=== PATIENT | female | born 1955 | race American Indian/Alaskan Native ===

== ENCOUNTER 2016-09-28 14:36 | Inpatient (IN) | payer MEDICARE ==
[2016-09-28 15:24] LABS: INR 1.06 (0.87-1.13)
[2016-09-28 15:34] LABS: Basophils % (Auto) 0.4 % (0.0-1.8); Eosinophils % (Auto) 0.6 % (0.0-4.3); Hematocrit 29.6 % (30.3-42.9); Hemoglobin 9.3 gm/dl (10.1-14.3); Mean Corpuscular HGB Conc 31 % (30-34); Mean Corpuscular Volume 80 fl (79-97); Platelet Count 150 K/mm3 (140-440); White Blood Count 7.3 K/mm3 (4.5-11.0)
[2016-09-28 15:35] LABS: Mean Corpuscular Hemoglobin 25 pg (28-32)
[2016-09-28 15:36] LABS: Red Cell Distribution Width 20.6 % (13.2-15.2)
[2016-09-28 16:00] LABS: Creatine Kinase MB 1.3 ng/mL (0.0-4.0)
[2016-09-28 16:01] LABS: Creatine Kinase 62 units/L (30-135)
[2016-09-28 16:11] LABS: BUN/Creatinine Ratio 19.33; Calcium 9.3 mg/dL (8.4-10.2); Chloride 100.8 mmol/L (98-107); Potassium 3.9 mmol/L (3.6-5.0)
[2016-09-28] MEDS ORDERED: MORPHINE ONE ×2 (16:54→16:55)
[2016-09-28] MEDS ORDERED: ZOFRAN ONE (16:55)
[2016-09-28] MEDS ORDERED: NACL 0.9% 1000 ML 1,000 ML IV ONE (16:58)
[2016-09-28] MEDS ORDERED: MORPHINE IV ONE (16:58)
[2016-09-28] MEDS ORDERED: ZOFRAN IV ONE (16:58)
[2016-09-28] MEDS ORDERED: HEPARIN 10,000 UNITS/10 ML IV ONE (16:58)
[2016-09-28] MEDS ORDERED: HEPARIN/ 0.45% NACL-25,000 UNIT/500 ML 25,000 UNIT/500 ML BAG ONE (17:08)
--- NOTE | 2016-09-28 17:18 | Consultation ---
History of Present Illness - Reason for Consult Consult date: 09/28/16 Ileofemoral DVT Requesting physician: RITO ROSA - History of Present Illness 61-year-old female with past medical history chronic low back pain and extensive lower extremity swelling status post iliac stents placed by Dr. Zimmerman in July 2016 which improved her swelling significantly, but in the last week, she developed severe swelling of the left lower extremity, and pain of the left lower extremity. This has prohibited her from walking, and has severely limited her by mouth intake as she isn't hungry due to her pain. The patient presented to [facility] yesterday, was provided a Lovenox injection, and told to follow-up at [facility] vascular specialist office which the patient did. At our office, the patient had an ultrasound demonstrating a left lower extremity iliofemoral DVT. The patient's right lower extremity feels fine. She also mentions that she feels somewhat short of breath, but her cardiac enzymes, and BNP are normal. Her heart rate is normal, and even slightly bradycardic at times (56). She denies a history of hematemesis, hematochezia, melena, prior stroke, prior myocardial infarction, or any bleeding issue. She denies any recent surgeries in the last year. Past History Past Medical History: anemia (chronic), diabetes, hypertension, hyperlipidemia, other (chronic pain ; venous insuffiency, status post iliac stenting 08/03/16 ; thyroid disease ; asthma) Past Surgical History: cholecystectomy, , thyroidectomy, total hip replacement, Other (tubal ligation) Social history: single Family history: no significant family history Medications and Allergies Allergies Allergy/AdvReac Type Severity Reaction Status Date / Time Penicillins Allergy Hives Verified 09/28/16 14:39 Active Meds: Active Medications Heparin Sodium/Sodium Chloride (Heparin/ 0.45% Nacl-25,000 Unit/500 Ml) 25,000 units in 500 mls @ 20 mls/hr IV TITR DODIE; 1,000 UNITS/HR PRN Reason: Protocol Sodium Chloride (Nacl 0.9% 1000 Ml) 1,000 mls @ 250 mls/hr IV ONCE ONE Stop: 09/28/16 20:57 Review of Systems All systems: negative (see HPI) Exam - Constitutional Vitals: Temp Pulse Resp BP Pulse Ox 98.8 F 61 18 140/62 98 09/28/16 14:41 09/28/16 16:40 09/28/16 17:04 09/28/16 16:40 09/28/16 16:43 General appearance: Present: mild distress (left lower extremity pain) - EENT Eyes: Present: EOM intact ENT: hearing intact - Neck Neck: Present: supple - Respiratory Respiratory effort: normal - Extremities Extremities: pulses intact (bilateral palpable pedal pulses), normal temperature , normal color Extremity abnormal: edema (left lower extremity), tenderness (left lower extremity) - Psychiatric Psychiatric: cooperative Results - Labs CBC & Chem 7: 09/28/16 14:57 09/28/16 14:57 Labs: Abnormal lab results 09/28/16 09/28/16 Range/Units 14:57 14:57 Hgb 9.3 L (10.1-14.3) gm/dl Hct 29.6 L (30.3-42.9) % MCH 25 L (28-32) pg RDW 20.6 H (13.2-15.2) % Lymph % (Auto) 13.0 L (13.4-35.0) % [place] % (Auto) 8.6 H (0.0-7.3) % Lymph # 1.0 L (1.2-5.4) K/mm3 Seg Neutrophils % 77.4 H (40.0-70.0) % Carbon Dioxide 20 L (22-30) mmol/L BUN 29 H (7-17) mg/dL Creatinine 1.5 H (0.7-1.2) mg/dL Glucose 163 H (65-100) mg/dL Assessment and Plan 61-year-old female with multiple medical problems status post iliac stent placements by Dr. Zimmerman in July 2016 for left lower extremity swelling which initially improved, but now presents with 1 week of signs and symptoms of left lower extremity DVT who was found to have an acute iliofemoral DVT at [facility] vascular specialist office. She also is complaining about shortness of breath with exertion but she is non-tachycardic, in fact intermittently bradycardic, and her cardiac enzymes and BNP are normal. She has acute renal insufficiency, and admits to not drinking or eating much during the last week. Recommend VQ scan for baseline evaluation of pulmonary embolism given acute renal failure. The patient does not appear to be significantly symptomatic although she is histrionic. The patient has normal cardiac enzymes and her BNP is normal, and even if she had right heart strain, which I doubt, she would be an intermediate-low risk for worsening pulmonary embolism and therefore would not be a candidate for pulmonary artery thrombolysis. Recommend ultrasound to further evaluate the lower extremities and document the extent of the left lower extremity iliofemoral DVT. Discussed endovascular treatment of the left lower extremity iliofemoral DVT which would involve IVC filter placement and subsequent thrombectomy, thrombolysis, angioplasty, and possible stenting. Given the significant symptomatology and underlying stents the patient would benefit from this as she would otherwise have a high risk of developing extensive post thrombotic syndrome. Recommend initiation of heparin drip with bolus. Recommend aggressive IV hydration given acute renal failure. Nothing by mouth after midnight. If patient's renal failure improves, then IVC filter, thrombectomy, thrombolysis can be performed.
[2016-09-28] MEDS ORDERED: DILAUDID IV PRN (17:25)
--- NOTE | 2016-09-28 17:25 | Emergency Department Report ---
HPI - General Chief Complaint: Extremity Injury, Lower Time Seen by Provider: 09/28/16 16:40 - HPI HPI: Room 20 The patient is a 61-year-old female presenting with a chief complaint of left lower extremity pain and swelling. The patient had a left lower extremity Doppler performed at [facility] [place] vascular which revealed "evidence of acute extensive deep vein thrombosis involving the left the IV, CFV, of the,. The, P OPV, [place], PTT, ATV and gastrocnemius muscle." Patient was sent to the ED for evaluation for potential PE given complaints of shortness of breath. The patient now currently complains of pain in the left lower extremity. Nitin was discussed with vascular surgeon Dr. Villasenor in the ED and he recommends initiating heparin drip with a bolus and obtain a VQ scan to rule out PE Location: Lower extremity, see above Duration: One week Quality: Pain Severity: Severe Modifying factors: [see above] Context: [see above] Mode of transportation: [not driving] ED Past Medical Hx - Past Medical History Previous Medical History?: Yes Hx Hypertension: Yes Hx Diabetes: Yes Hx Arthritis: Yes Additional medical history: THYROID/ HIGH CHOLESTROL - Surgical History Past Surgical History?: Yes Hx Cholecystectomy: Yes Additional Surgical History: HIP REPLACEMENT X2 / TONSIL/ THYROID REMOVED/ KNEE SURG - Family History Family history: no significant - Social History Smoking Status: Current Every Day Smoker Substance Use Type: None ED Review of Systems ROS: Stated complaint: POSS BLOOD CLOT LEFT LEG Other details as noted in HPI Comment: All other systems reviewed and negative Constitutional: denies: chills, fever Eyes: denies: eye pain, eye discharge, vision change ENT: denies: ear pain, throat pain Respiratory: shortness of breath Cardiovascular: denies: chest pain, palpitations Endocrine: no symptoms reported Gastrointestinal: denies: abdominal pain, nausea, diarrhea Genitourinary: denies: urgency, dysuria, discharge Musculoskeletal: myalgia Skin: denies: rash, lesions Neurological: denies: headache, weakness, paresthesias Psychiatric: denies: anxiety, depression Hematological/Lymphatic: other (dvt) Physical Exam - Physical Exam Vital Signs: Vital Signs 09/28/16 09/28/16 09/28/16 14:41 16:40 16:43 Temperature 98.8 F Pulse Rate 65 61 Respiratory 18 18 Rate Blood Pressure 138/78 Blood Pressure 140/62 [Right] O2 Sat by Pulse 98 98 98 Oximetry 09/28/16 17:04 Temperature Pulse Rate Respiratory 18 Rate Blood Pressure Blood Pressure [Right] O2 Sat by Pulse Oximetry Physical Exam: GENERAL: The patient is well-developed well-nourished female lying on stretcher appearing to be in mild discomfort. [] HEENT: Normocephalic. Atraumatic. Extraocular motions are intact. Patient has moist mucous membranes. NECK: Supple. Trachea midline CHEST/LUNGS: Clear to auscultation. There is no respiratory distress noted. HEART/CARDIOVASCULAR: Regular. There is no tachycardia. There is no gallop rub or murmur. ABDOMEN: Abdomen is soft, nontender. Patient has normal bowel sounds. There is no abdominal distention. SKIN: There is no rash. There is no edema. There is no diaphoresis. NEURO: The patient is awake, alert, and oriented. The patient is cooperative. The patient has normal speech MUSCULOSKELETAL:There is no evidence of acute injury. ED Course Vital Signs 09/28/16 09/28/16 09/28/16 14:41 16:40 16:43 Temperature 98.8 F Pulse Rate 65 61 Respiratory 18 18 Rate Blood Pressure 138/78 Blood Pressure 140/62 [Right] O2 Sat by Pulse 98 98 98 Oximetry 09/28/16 17:04 Temperature Pulse Rate Respiratory 18 Rate Blood Pressure Blood Pressure [Right] O2 Sat by Pulse Oximetry - EJ/Peripheral Line Neck L Time Out Performed: Yes Indications: multiple IV sites needed Skin Cleansed in Sterile Fashion: Yes Size: 20 Dressing Placed: tape Patient Tolerated Procedure: no complications ED Medical Decision Making - Lab Data Result diagrams: 09/28/16 17:35 09/28/16 14:57 Laboratory Tests 09/28/16 09/28/16 09/28/16 14:57 14:57 14:57 WBC 7.3 RBC 3.70 Hgb 9.3 L Hct 29.6 L MCV 80 MCH 25 L MCHC 31 RDW 20.6 H Plt Count 150 Lymph % (Auto) 13.0 L [place] % (Auto) 8.6 H Eos % (Auto) 0.6 Baso % (Auto) 0.4 Lymph # 1.0 L [place] # 0.6 Eos # 0.0 Baso # 0.0 Seg Neutrophils % 77.4 H Seg Neutrophils # 5.7 PT INR APTT Sodium 137 Potassium 3.9 Chloride 100.8 Carbon Dioxide 20 L Anion Gap 20 BUN 29 H Creatinine 1.5 H Estimated GFR 35 BUN/Creatinine Ratio 19.33 Glucose 163 H Calcium 9.3 Total Creatine Kinase 62 CK-MB (CK-2) 1.3 CK-MB (CK-2) Rel Index 2.0 Troponin T < 0.010 NT-Pro-B Natriuret Pep 194.6 09/28/16 14:57 WBC RBC Hgb Hct MCV MCH MCHC RDW Plt Count Lymph % (Auto) [place] % (Auto) Eos % (Auto) Baso % (Auto) Lymph # [place] # Eos # Baso # Seg Neutrophils % Seg Neutrophils # PT 14.3 INR 1.06 APTT 32.0 Sodium Potassium Chloride Carbon Dioxide Anion Gap BUN Creatinine Estimated GFR BUN/Creatinine Ratio Glucose Calcium Total Creatine Kinase CK-MB (CK-2) CK-MB (CK-2) Rel Index Troponin T NT-Pro-B Natriuret Pep - Radiology Data Radiology results: report reviewed (VQ scan), image reviewed (chest x-ray, VQ scan) interpreted by me: Chest x-ray-no focal infiltrates, no pneumothorax VQ scan (read by radiologist)-low probability - Differential Diagnosis DVT, PE Critical care attestation.: If time is entered above; I have spent that time in minutes in the direct care of this critically ill patient, excluding procedure time. ED Disposition Clinical Impression: Left leg DVT, Leg pain, left Disposition: DC-09 OP ADMIT IP TO THIS HOSP Is pt being admited?: Yes Does the pt Need Aspirin: No Condition: Fair Referrals: PRIMARY CARE, [Referring] - 3-5 Days Time of Disposition: 19:27 (hospitalist notified)
--- NOTE | 2016-09-28 17:26 | Admit Criteria Form ---
Admission Criteria Documentation: DEEP VENOUS THROMBOSIS OF LOWER EXTREMITIES Clinical Indications for Admission to Inpatient Care ( Place 'X' for any and all applicable criteria): Admission is indicated for ANY ONE of the following (1)(2)(3)(4): [ ]I. Documented extensive thrombosis (e.g., clot in vena cava or above iliofemoral bifurcation) [ ]II. Limb-threatening thrombosis (e.g., phlegmasia cerulea dolens) [ ]III. Active bleeding [ ]IV. Recent surgery (e.g., within 6 weeks) [ ]V. Active peptic ulcer disease [ ]. Thrombosis while on anticoagulation [ ]VII. [X]VIII. Appropriate monitoring and therapy cannot be provided in home or outpatient setting [ ]IX. Thrombolysis (e.g., catheter-directed) or pharmaco mechanical thrombectomy needed (3) [ ]X. Vena cava filter placement planned (3) [ ]XI. Severely diminished cardiopulmonary reserve (e.g., pulmonary hypertension) [ ]XII. Severe renal failure (e.g., GFR less than 30 mL/min/1.73m2 (0.5 mL/sec /1.73m2)) [ ]XIII. Known clotting abnormality or deficiency (antithrombin III, protein C , or protein S) [ ]XIV. History of heparin-induced thrombocytopenia [ ]XV . Personal or family history of bleeding tendency or familial bleeding disorder that requires inpatient admission rather than observation care (Also use Deep Venous Thrombosis of Lower Extremities: Observation Care as appropriate) because of ANY ONE of the following: [ ]a) Significant allergic, autoimmune (thrombocytopenia), or coagulopathic reaction occurs in response to anticoagulation [ ]b) Other significant finding or clinical condition judged not to be within the scope of observation care Extended stay beyond goal length of stay may be needed for(1)(19): [ ]a) Hemorrhage or recent surgery(3) [ ]b) Inadequate oral anticoagulation [ ]c) Recurrent thromboembolism(3) [ ]d) Heparin-induced thrombocytopenia(14) The original [facility] content created by [facility] has been revised. The portions of the content which have been revised are identified through the use of italic text or in bold, and [facility] has neither reviewed nor approved the modified material. All other unmodified content is copyright [facility]. Please see references footnoted in the original [facility] edition 2016 Admission Criteria Met: Yes
[2016-09-28] MEDS: HEPARIN/ 0.45% NACL-25,000 UNIT/500 ML 25,000 UNITS/500 ML BAG IV SCH (17:42)
[2016-09-28 18:18] LABS: INR 1.06 (0.87-1.13); Partial Thromboplastin Time 31.5 Sec. (24.2-36.6)
[2016-09-28 18:30] LABS: Hematocrit 27.5 % (30.3-42.9); Hemoglobin 8.6 gm/dl (10.1-14.3)
--- NOTE | 2016-09-28 18:34 | History and Physical Report ---
History of Present Illness Chief complaint: My left leg hurts. History of present illness: 61 YO Female with HTN, DM, OA, HLD, hypothyroidism, Nicotine Dependence presents to ED for evaluation. Pt states that she has experienced Left calf swelling for the past several days, with worsening symptoms over the past 1 day. The patient had a left lower extremity Doppler performed at [facility] which revealed "evidence of acute extensive deep vein thrombosis involving the left lower extremity. Patient was seen and evaluated in ED and started on Heparin drip. Vascular surgery/IR consulted in ED. Pt denies fever, chills, CP, Palpitations, difficulty breathing, NVD, productive cough, hemoptysis, or recent ill contacts. Past History Past Medical History: anemia (chronic), diabetes, hypertension, hyperlipidemia, other (chronic pain ; venous insuffiency, status post iliac stenting 08/03/16 ; thyroid disease ; asthma) Past Surgical History: cholecystectomy, , thyroidectomy, total hip replacement, Other (tubal ligation) Social history: single Family history: no significant family history Medications and Allergies Allergies Allergy/AdvReac Type Severity Reaction Status Date / Time Penicillins Allergy Hives Verified 09/28/16 14:39 Home Medications Medication Instructions Recorded Confirmed Last Taken Type Levothyroxine Sodium [Unithroid] 50 mcg PO DAILY 09/28/16 09/28/16 09/27/16 History Omeprazole Magnesium [PriLOSEC Otc] 20 mg PO QDAY 09/28/16 09/28/16 09/27/16 History Simvastatin [Zocor TAB] 20 mg PO QHS 09/28/16 09/28/16 09/27/16 History Triamter/Hctz 75-50 mg [Maxzide 1 tab PO QDAY 09/28/16 09/28/16 09/27/16 History 75-50 mg] metFORMIN [Glucophage] 500 mg PO BID 09/28/16 09/28/16 09/27/16 History Active Meds: Active Medications Hydromorphone HCl (Dilaudid) 1 mg IV ONCE PRN PRN Reason: Pain Last Admin: 09/28/16 17:46 Dose: 1 mg Heparin Sodium/Sodium Chloride (Heparin/ 0.45% Nacl-25,000 Unit/500 Ml) 25,000 units in 500 mls @ 20 mls/hr IV TITR DODIE; 1,000 UNITS/HR PRN Reason: Protocol Last Admin: 09/28/16 17:42 Dose: 1,000 units/hr, 20 mls/hr Sodium Chloride (Nacl 0.9% 1000 Ml) 1,000 mls @ 250 mls/hr IV ONCE ONE Stop: 09/28/16 20:57 Last Admin: 09/28/16 17:43 Dose: 250 mls/hr Sodium Chloride (Nacl 0.9% 1000 Ml) 1,000 mls @ 150 mls/hr IV DIRECT DODIE Review of Systems All systems: negative Constitutional: other (leg pain), no weight loss Ears, nose, mouth and throat: no ear pain Breasts: no swelling Cardiovascular: no chest pain Respiratory: no cough Gastrointestinal: no abdominal pain Genitourinary Female: no pelvic pain Menstruation: no ammenorrhea Rectal: no pain Musculoskeletal: no neck stiffness Integumentary: no rash Neurological: no head injury Psychiatric: no anxiety Endocrine: no cold intolerance Hematologic/Lymphatic: no easy bruising Allergic/Immunologic: no urticaria Exam - Constitutional Vitals: Temp Pulse Resp BP Pulse Ox 98.8 F 61 18 140/62 98 09/28/16 14:41 09/28/16 16:40 09/28/16 17:46 09/28/16 16:40 09/28/16 16:43 General appearance: Present: mild distress - EENT Eyes: Present: PERRL ENT: hearing intact, clear oral mucosa - Neck Neck: Present: supple, normal ROM - Respiratory Respiratory effort: normal Respiratory: bilateral: CTA - Cardiovascular Heart Sounds: Present: S1 & S2. Absent: rub, click - Extremities Extremities: pulses symmetrical, No edema, abnormal (LLE Edema, ) Extremity abnormal: edema, tenderness Peripheral Pulses: within normal limits - Abdominal General gastrointestinal: Present: soft, non-tender, non-distended, normal bowel sounds Female genitourinary: Present: normal - Integumentary Integumentary: Present: clear, warm, dry - Musculoskeletal Musculoskeletal: gait normal, strength equal bilaterally - Psychiatric Psychiatric: appropriate mood/affect, intact judgment & insight - Neurologic Neurologic: CNII-XII intact, moves all extremities Results - Labs CBC & Chem 7: 09/28/16 17:35 09/28/16 14:57 Labs: Abnormal lab results 09/28/16 09/28/16 09/28/16 Range/Units 14:57 14:57 17:35 Hgb 9.3 L 8.6 L (10.1-14.3) gm/dl Hct 29.6 L 27.5 L (30.3-42.9) % MCH 25 L (28-32) pg RDW 20.6 H (13.2-15.2) % Plt Count 139 L (140-440) K/mm3 Lymph % (Auto) 13.0 L (13.4-35.0) % [place] % (Auto) 8.6 H (0.0-7.3) % Lymph # 1.0 L (1.2-5.4) K/mm3 Seg Neutrophils % 77.4 H (40.0-70.0) % Carbon Dioxide 20 L (22-30) mmol/L BUN 29 H (7-17) mg/dL Creatinine 1.5 H (0.7-1.2) mg/dL Glucose 163 H (65-100) mg/dL Assessment and Plan - Patient Problems (1) Left leg DVT Current Visit: Yes Status: Acute Qualifiers: Affected thrombotic vein of extremity: femoral Chronicity: acute Qualified Code(s): I82.412 - Acute embolism and thrombosis of left femoral vein Plan to address problem: Heparin drip, IR consulted/Vascular consulted, supportive care, pain control, (2) HTN (hypertension) Current Visit: Yes Status: Acute Qualifiers: Hypertension type: H Plan to address problem: monitor BP q shift, supportive care. (3) Diabetes Current Visit: Yes Status: Acute Qualifiers: Diabetes mellitus type: D Diabetes mellitus complication status: D Diabetes mellitus complication detail: D Diabetic retinopathy severity: D Proliferative retinopathy type: P Diabetes mellitus macular edema: D Diabetes mellitus half-way insulin use: D Laterality: L Chronic kidney disease stage: C Plan to address problem: ADA diet, insulin, accu check (4) Nicotine dependence Current Visit: Yes Status: Acute Qualifiers: Nicotine product type: N Substance use status: S Plan to address problem: Pt counseled, Pt refused to pick quit date, supportive care. (5) DVT prophylaxis Current Visit: Yes Status: Acute
--- NOTE | 2016-09-28 19:02 | Nuclear Medicine Report ---
FINAL REPORT EXAM: NM LUNG SCAN PERF/VENT HISTORY: SOB/R/O PE TECHNIQUE: Profusion imaging of the lungs was performed in multiple planar projections. Ventilation exam was performed in the posterior projection. Correlation with a chest x-ray dated 09/28/2016 was made. DOSE: 15 millicuries Xe-133 gas; 5 millicuries 99m Tc MAA given IV. PRIORS: None. FINDINGS: No unmatched segmental or subsegmental perfusion defects are identified to suggest the presence of pulmonary embolism. There is mild non segmental decreased profusion uptake in the left lower lobe which corresponds to a mild area of gas trapping on the ventilation study. Findings are most typical of underlying COPD or emphysema. IMPRESSION: Low probability v/Q scan. No evidence for pulmonary embolism. Matched decreased profusion uptake in the left lower lobe corresponds to an area of gas trapping on the ventilation study suggesting underlying COPD or emphysema.
[2016-09-28] MEDS ORDERED: ZOFRAN IV PRN (19:45)
[2016-09-28] MEDS ORDERED: TYLENOL PO PRN (19:45)
[2016-09-28] MEDS ORDERED: DUONEB *Not for PRN Use IH (19:45)
[2016-09-28] MEDS ORDERED: PROVENTIL IH PRN (20:01)
[2016-09-28] MEDS: PERCOCET 5/325 PO PRN (20:50)
[2016-09-28] MEDS: NACL 0.9% 1000 ML 1,000 ML IV SCH (22:23)
--- NOTE | 2016-09-29 08:04 | XRay Report ---
Portable chest: SOB. The aorta is tortuous. The heart is normal in size. There is no vascular congestion. There is a small, smooth, noncalcified nodule in the mid left lung. The lungs otherwise are clear. No prior study for comparison. Impression: Low suspicion small left pulmonary nodule. Recommendation: Repeat chest exam in 6 months to reevaluate nodule.
[2016-09-29] MEDS: PERCOCET 5/325 PO PRN ×3 (09:52→22:46)
[2016-09-29 10:30] LABS: BUN/Creatinine Ratio 12.59; Calcium 8.3 mg/dL (8.4-10.2); Chloride 106.7 mmol/L (98-107)
--- NOTE | 2016-09-29 11:54 | Consultation ---
History of Present Illness - Reason for Consult Consult date: 09/29/16 acute renal failure Requesting physician: VIKAS HAYES - History of Present Illness 61-year-old female with past medical history listed below admitted after she presented with severe swelling of the left lower extremity, in association with pain of the left lower extremity. No aggravating or relieving factors. Pt had similar incident in July 2016 when She had iliac. stents placed by Dr. Zimmerman which improved her swelling significantly. She is now found to have a left lower extremity iliofemoral DVT. We are consulted today after she was noted to have a rise in her CR from 1.5 to 2.7 despite IVF. Plan was for IVC filter, thrombectomy, thrombolysis today but procedure postponed because of her rise in CR. She admits to low oral fluid intake for several days and has been using BC powders for pain No contrast exposure No hypotension episodes She states she was told to have renal stones recently on a CT done at [facility] imaging for unrelated compliant (results not available for me to review at present) Denies any urinary symptoms Past History Past Medical History: anemia (chronic), diabetes, hypertension, hyperlipidemia, other (chronic pain ; venous insuffiency, status post iliac stenting 08/03/16 ; thyroid disease ; asthma) Past Surgical History: cholecystectomy, , thyroidectomy, total hip replacement, Other (tubal ligation) Social history: single Family history: no significant family history Medications and Allergies Allergies Allergy/AdvReac Type Severity Reaction Status Date / Time Penicillins Allergy Hives Verified 09/28/16 14:39 Home Medications Medication Instructions Recorded Confirmed Last Taken Type Levothyroxine Sodium [Unithroid] 50 mcg PO DAILY 09/28/16 09/28/16 09/27/16 History Omeprazole Magnesium [PriLOSEC Otc] 20 mg PO QDAY 09/28/16 09/28/16 09/27/16 History Simvastatin [Zocor TAB] 20 mg PO QHS 09/28/16 09/28/16 09/27/16 History Triamter/Hctz 75-50 mg [Maxzide 1 tab PO QDAY 09/28/16 09/28/16 09/27/16 History 75-50 mg] metFORMIN [Glucophage] 500 mg PO BID 09/28/16 09/28/16 09/27/16 History Active Meds: Active Medications Acetaminophen (Tylenol) 650 mg PO Q4H PRN PRN Reason: Pain MILD(1-3)/Fever >100.5/AMARO Albuterol (Proventil) 2.5 mg IH Q4HRT PRN PRN Reason: Shortness Of Breath Hydromorphone HCl (Dilaudid) 1 mg IV ONCE PRN PRN Reason: Pain Last Admin: 09/28/16 17:46 Dose: 1 mg Heparin Sodium/Sodium Chloride (Heparin/ 0.45% Nacl-25,000 Unit/500 Ml) 25,000 units in 500 mls @ 20 mls/hr IV TITR DODIE; 1,000 UNITS/HR PRN Reason: Protocol Last Titration: 09/29/16 02:29 Dose: 1,000 units/hr, 20 mls/hr Sodium Chloride (Nacl 0.9% 1000 Ml) 1,000 mls @ 150 mls/hr IV DIRECT DODIE Last Admin: 09/28/16 22:23 Dose: 150 mls/hr Ondansetron HCl (Zofran) 4 mg IV Q8H PRN PRN Reason: N/V unrelieved by Reglan Oxycodone/Acetaminophen (Percocet 5/325) 1 tab PO Q6H PRN PRN Reason: Pain, Moderate (4-6) Last Admin: 09/29/16 09:52 Dose: 1 tab Review of Systems Constitutional: chronic pain, no weight loss, no weight gain Ears, nose, mouth and throat: no nasal congestion, no nasal discharge, no sinus pressure Cardiovascular: shortness of breath, no chest pain, no orthopnea, no palpitations Respiratory: no cough, no wheezing Gastrointestinal: no nausea, no vomiting, no diarrhea Genitourinary Female: no dysuria, no urinary frequency, no urgency Musculoskeletal: other (chronic back pain , left leg swelling ), no neck pain, no shooting arm pain Integumentary: no pruritis, no redness Neurological: no numbness, no tingling, no seizures Psychiatric: no memory loss, no change in sleep habits, no sleep disturbances Endocrine: no polyphagia, no excessive thirst, no polydipsia Hematologic/Lymphatic: no easy bruising, no easy bleeding Exam - Vital Signs Vital signs: Vital Signs Temp Pulse Resp BP Pulse Ox 98.8 F 65 18 138/78 98 09/28/16 14:41 09/28/16 14:41 09/28/16 14:41 09/28/16 14:41 09/28/16 14:41 - General Appearance General appearance: well-developed, well-nourished, appears stated age EENT: PERRL, mucous membranes moist Neck: Present: neck supple, trachea midline. Absent: JVD/HJR, Masses Respiratory: Clear to Ascultation Heart: regular, normal heart rate, S1S2, no murmurs Gastrointestinal: Present: normal. Absent: tenderness, distended, masses, guarding Integumentary: no rash, warm and dry Neurologic: no focal deficit, alert and oriented x3, gait normal, strength 5/5 Musculoskeletal: Absent: deformities, joint swelling Psychiatric: mood/affect appropriate, cooperative Results - Lab Results 09/28/16 17:35 09/29/16 09:46 Most recent lab results Calcium 8.3 mg/dL (8.4-10.2) L 09/29/16 09:46 Assessment and Plan 1. DONNA likely Prerenal azotemia/ possibly ATN / chronic NSAID use. She also states that she was told to have nephrolithiasis on recent CT ? obstructive uropathy ? underlying CKD/ baseline CR unavailable 2. Acute left lower extremity iliofemoral DVT. 3. Essential HTN 4. Chronic pain syndrome 5. Nephrolithiasis 6. DM II Plan: Obtain Urine studies Obtain Renal U/S IVF rate to 150 cc/hr Avoid nephrotoxins Maintain MAP>=65 Off metformin and Trimetrene HCT Further recommendations to follow based on response to above measures Thank you for the consult
--- NOTE | 2016-09-29 12:08 | Progress Note ---
Assessment and Plan 61-year-old female with multiple medical problems status post iliac stent placements by Dr. Zimmerman in July 2016 for left lower extremity swelling which initially improved, but now presents with 1 week of signs and symptoms of left lower extremity DVT who was found to have an acute iliofemoral DVT. I will try to optimize patient's pain medications, but patient may ultimately need a [employer] until procedure to be performed for adequate pain control. VQ scan low probability. Non-tachycardic. Likely no pulmonary embolism of any consequence. Extensive left lower extremity iliofemoral DVT with significant symptomatology. Recommend continuation of heparin drip in order to allow for endovascular procedures to be performed when patient is stable. Renal function has worsened. Consulted nephrology for further evaluation. Once patient has rastafarian of renal function, then thrombolysis and thrombectomy can be performed. Diet restored. Subjective Date of service: 09/29/16 Principal diagnosis: left lower extremity iliofemoral DVT Interval history: Patient has severe left lower extremity pain and swelling. Palpable left pedal pulses. Ultrasound demonstrates extensive left lower extremity DVT. Patient continues to have severe pain. Given her chronic pain condition, controlling her pain will be especially difficult which I explained to her. Patient's renal function has worsened despite IV hydration area and nephrology consult. Procedure canceled for today. Diet restored. Objective - Constitutional Vitals: Vital Signs - 12hr 09/29/16 09/29/16 04:00 09:50 Temperature 98.3 F Pulse Rate [ 60 Left Radial] Respiratory 18 Rate Blood Pressure 129/63 [Right Arm] O2 Sat by Pulse 97 Oximetry General appearance: Present: mild distress (left lower extremity pain) - EENT Eyes: EOM intact ENT: hearing intact - Respiratory Respiratory effort: normal Extremities: abnormal (see subjective) - Gastrointestinal General gastrointestinal: Present: soft, non-tender - Psychiatric Psychiatric: intact judgment & insight, cooperative - Labs CBC & Chem 7: 09/28/16 17:35 09/29/16 09:46 Labs: Abnormal lab results 09/29/16 09/29/16 Range/Units 07:40 09:46 Carbon Dioxide 19 L (22-30) mmol/L BUN 34 H (7-17) mg/dL Creatinine 2.7 H D (0.7-1.2) mg/dL Glucose 115 H (65-100) mg/dL POC Glucose 137 H (70-105) Calcium 8.3 L (8.4-10.2) mg/dL
--- NOTE | 2016-09-29 12:33 | Progress Note ---
Assessment and Plan Assessment and plan: Patient is 61 yo woman with a history of hypertension, diabetes mellitus type 2 , tobacco dependency and leg chronic venous insufficiency status post iliac stent placements by Dr. Zimmerman in July 2016 for left lower extremity swelling which initially improved, but now presents with 1 week of signs and symptoms of left lower extremity DVT who was found to have an acute iliofemoral DVT at the [facility] Vascular office. VQ scan low probability. 09/29/16 09:26 - Radiology Dept. Note by ANIBAL LAMBERT, [facility] Num: [id number] : 1955 Patient Age: 61, VASCULAR LAB PRELIMINARY REPORT, BLE VENOUS DOPPLER COMPLETED, ACUTE OCCLUSIVE DVT NOTED IN LT DS EIV, CFV, DFV, SFV, POP V AND EXTENDING TO CALF VESSELS, SVT NOTED IN LT PX AND MD THIGH GSV, Initialized on 09/29/16 09:26 - END OF NOTE -Acute Extensive left lower extremity iliofemoral DVT with significant symptomatology: Continue IV heparin drip for endovascular procedures to be performed when patient is stable. Hold off starting oral Coumadin for vascular procedure -Acute renal failure, vasomotor nephropathy, present on admission, Renal function has worsened: consulted nephrology, Once patient has cheondoism of renal function, then thrombolysis and thrombectomy can be performed. -Acute on chronic anemia, microcytic: Repeat levels to monitor closely -Uncontrolled type 2 diabetes mellitus with hyperglycemia: Add sliding scale and add ADA diet -Tobacco dependency: Counseling on stopping done -DVT prophylaxis: On heparin drip History Interval history: Patient seen and examined. Follow up on leg swelling. Overnight uneventful. No cp, n/v or severe headaches. Imaging, old records, testing, labs, nursing notes reviewed. Hospitalist Physical - Physical exam Narrative exam: GEN: WDWN, NAD, AWAKE, ALERT, ORIENTATED x 3 HEENT: NCAT, PERRL, EOMI, OP CLEAR NECK: SUPPLE, NO THYROMEGALY, NO JVD, NO LAD CVS: RRR, NORMAL S1S2 LUNGS/CHEST: CTA B, NORMAL CHEST EXPANSION B, GOOD AIR ENTRY B ABD: SOFT, NTND, GBS, NO REBOUND OR GUARDING EXT/SKIN: Left leg is significantly larger than right leg, good peripheral pulses bilaterally MSK: FROM X 4 EXTREMITIES NEURO: CN 2-12 GROSSLY INTACT, NO FOCAL DEFICITS PSY: CALM, it does appear patient has some type of personality disorder mentioned in Dr. Villasenor's note - Constitutional Vitals: Temp Pulse Resp BP Pulse Ox 98.3 F 60 18 129/63 97 09/29/16 04:00 09/29/16 04:00 09/29/16 04:00 09/29/16 04:00 09/29/16 09:50 Results - Labs CBC & Chem 7: 09/28/16 17:35 09/29/16 09:46 Labs: Laboratory Last Values WBC 7.3 K/mm3 (4.5-11.0) 09/28/16 14:57 RBC 3.70 M/mm3 (3.65-5.03) 09/28/16 14:57 Hgb 8.6 gm/dl (10.1-14.3) L 09/28/16 17:35 Hct 27.5 % (30.3-42.9) L 09/28/16 17:35 MCV 80 fl (79-97) 09/28/16 14:57 MCH 25 pg (28-32) L 09/28/16 14:57 MCHC 31 % (30-34) 09/28/16 14:57 RDW 20.6 % (13.2-15.2) H 09/28/16 14:57 Plt Count 139 K/mm3 (140-440) L 09/28/16 17:35 Lymph % (Auto) 13.0 % (13.4-35.0) L 09/28/16 14:57 [place] % (Auto) 8.6 % (0.0-7.3) H 09/28/16 14:57 Eos % (Auto) 0.6 % (0.0-4.3) 09/28/16 14:57 Baso % (Auto) 0.4 % (0.0-1.8) 09/28/16 14:57 Lymph # 1.0 K/mm3 (1.2-5.4) L 09/28/16 14:57 [place] # 0.6 K/mm3 (0.0-0.8) 09/28/16 14:57 Eos # 0.0 K/mm3 (0.0-0.4) 09/28/16 14:57 Baso # 0.0 K/mm3 (0.0-0.1) 09/28/16 14:57 Seg Neutrophils % 77.4 % (40.0-70.0) H 09/28/16 14:57 Seg Neutrophils # 5.7 K/mm3 (1.8-7.7) 09/28/16 14:57 PT 14.3 Sec. (12.2-14.9) 09/28/16 17:35 INR 1.06 (0.87-1.13) 09/28/16 17:35 APTT 31.5 Sec. (24.2-36.6) 09/28/16 17:35 Heparin Anti-Xa Level 0.41 U.I./ml (0.3-0.7) 09/29/16 01:37 Sodium 141 mmol/L (137-145) 09/29/16 09:46 Potassium 4.0 mmol/L (3.6-5.0) 09/29/16 09:46 Chloride 106.7 mmol/L (98-107) 09/29/16 09:46 Carbon Dioxide 19 mmol/L (22-30) L 09/29/16 09:46 Anion Gap 19 mmol/L 09/29/16 09:46 BUN 34 mg/dL (7-17) H 09/29/16 09:46 Creatinine 2.7 mg/dL (0.7-1.2) H D 09/29/16 09:46 Estimated GFR 22 ml/min 09/29/16 09:46 BUN/Creatinine Ratio 12.59 % 09/29/16 09:46 Glucose 115 mg/dL (65-100) H 09/29/16 09:46 POC Glucose 137 (70-105) H 09/29/16 07:40 Calcium 8.3 mg/dL (8.4-10.2) L 09/29/16 09:46 Total Creatine Kinase 62 units/L (30-135) 09/28/16 14:57 CK-MB (CK-2) 1.3 ng/mL (0.0-4.0) 09/28/16 14:57 CK-MB (CK-2) Rel Index 2.0 (0-4) 09/28/16 14:57 Troponin T < 0.010 ng/mL (0.00-0.029) 09/28/16 14:57 NT-Pro-B Natriuret Pep 194.6 pg/mL (0-900) 09/28/16 14:57
[2016-09-29] MEDS: DILAUDID IV PRN ×2 (13:41→18:49)
--- NOTE | 2016-09-29 15:13 | Vascular Lab Report ---
LOWER EXTREMITY VENOUS DUPLEX: REASON FOR EXAM: Pain and swelling of the lower extremities. COMMENTS ON THE RIGHT: All veins visualized are freely compressible without evidence of internal echogenicity. Flow is spontaneous and phasic throughout. COMMENTS ON THE LEFT: Acute extensive deep venous thrombosis is noted starting from the posterior tibial and peroneal vein, extending into the popliteal, femoral, common femoral and external iliac veins. Deep venous thrombosis is also noted in the deep femoral vein. The superficial femoral phlebitis is noted in the greater saphenous vein. The remaining veins visualized are freely compressible without evidence of internal echogenicity. Spontaneous and phasic flow is absent proximally. IMPRESSION: Extensive deep venous thrombosis in the left lower extremity
[2016-09-29] MEDS: NACL 0.9% 1000 ML 1,000 ML IV SCH (16:02)
[2016-09-29] MEDS: HEPARIN/ 0.45% NACL-25,000 UNIT/500 ML 25,000 UNITS/500 ML BAG IV SCH ×2 (18:50→22:55)
[2016-09-30] MEDS: DILAUDID IV PRN ×7 (01:03→22:09)
[2016-09-30] MEDS: NACL 0.9% 1000 ML 1,000 ML IV SCH ×3 (01:27→21:46)
[2016-09-30 02:38] LABS: Bacteria,Urine 4+ /HPF (Negative); Bilirubin,Urine NEG (Negative); Blood,Urine SM (Negative); Granular Casts,Urine 4 /LPF; Ketones,Urine NEG (Negative); Leukocyte Esterase,Urine LG (Negative); Mucus,Urine FEW /HPF; Nitrite,Urine NEG (Negative); Protein,Urine <15 mg/dL mg/dL (Negative); Urobilinogen,Urine < 2.0 mg/dL (<2.0)
--- NOTE | 2016-09-30 08:19 | Progress Note ---
Assessment and Plan 1. DONNA likely Prerenal azotemia/ possibly ATN / chronic NSAID use. She also states that she was told to have nephrolithiasis on recent CT ? obstructive uropathy ? underlying CKD/ baseline CR unavailable 2. Acute left lower extremity iliofemoral DVT. 3. Essential HTN 4. Chronic pain syndrome 5. Nephrolithiasis 6. DM II 7. UTI Plan: UA shows evidence of UTI, given also above symptoms will treat with levaquin ( pt has penicillin allergy) after obtaining urine culture. repeat BMP this AM awaiting Renal U/S cont NS 150 cc/hr Avoid nephrotoxins Maintain MAP>=65 cont to hold metformin and Trimetrene HCT Further recommendations to follow based on response to above measures Subjective Date of service: 09/30/16 Principal diagnosis: left lower extremity iliofemoral DVT Interval history: pt awake, alert, c/o dysuria, burning sensation upon urination, with cloudy urine. Denies fever, chills, nausea, vomiting. Objective - Vital Signs Vital signs: Vital Signs - 12hr 09/29/16 09/30/16 09/30/16 22:00 00:00 04:00 Temperature 98.6 F 97.6 F Pulse Rate [ 58 L 56 L 61 Left Radial] Respiratory 18 18 20 Rate Blood Pressure 134/60 140/59 [Right Arm] O2 Sat by Pulse 100 98 Oximetry 09/30/16 04:24 Temperature Pulse Rate [ Left Radial] Respiratory 18 Rate Blood Pressure [Right Arm] O2 Sat by Pulse Oximetry - General Appearance General appearance: well-developed, well-nourished EENT: ATNC, PERRL, mucous membranes moist Neck: no JVD Respiratory: Present: Clear to Ascultation Cardiology: regular, S1S2 Gastrointestinal: normoactive bowel sounds, other (suprapubic tenderness ) Integumentary: no rash, other (no edema ) Neurologic: no focal deficit, alert and oriented x3, strength 5/5, CN 3-12 intact Psychiatric: mood/affect appropriate, cooperative - Lab 09/28/16 17:35 09/29/16 09:46 Most recent lab results Calcium 8.3 mg/dL (8.4-10.2) L 09/29/16 09:46 Urine Creatinine 130.8 mg/dL (0.1-20.0) H 09/30/16 00:30 Urine Total Protein 47 mg/dL (5-11.8) H 09/30/ 00:30
[2016-09-30] MEDS ORDERED: LEVAQUIN 500MG/100ML 500 MG/100 ML BAG IV SCH (10:00)
[2016-09-30] MEDS ORDERED: LEVAQUIN 250MG/50ML 250 MG/50 ML BAG IV SCH (10:00)
[2016-09-30 10:09] LABS: Hematocrit 25.3 % (30.3-42.9)
[2016-09-30 10:21] LABS: BUN/Creatinine Ratio 9.25; Calcium 8.2 mg/dL (8.4-10.2); Chloride 108.4 mmol/L (98-107); Potassium 3.9 mmol/L (3.6-5.0)
[2016-09-30] MEDS: PERCOCET 5/325 PO PRN ×3 (10:27→23:44)
--- NOTE | 2016-09-30 11:33 | Progress Note ---
Assessment and Plan Assessment and plan: Patient is 61 yo woman with a history of hypertension, diabetes mellitus type 2 , tobacco dependency and leg chronic venous insufficiency status post iliac stent placements by Dr. Zimmerman in July 2016 for left lower extremity swelling which initially improved, but now presents with 1 week of signs and symptoms of left lower extremity DVT who was found to have an acute iliofemoral DVT at the [facility] office. VQ scan low probability. 09/29/16 09:26 - Radiology Dept. Note by ANIBAL LAMBERT, [facility] Num: [id number] : 1955 Patient Age: 61, VASCULAR LAB PRELIMINARY REPORT, BLE VENOUS DOPPLER COMPLETED, ACUTE OCCLUSIVE DVT NOTED IN LT DS EIV, CFV, DFV, SFV, POP V AND EXTENDING TO CALF VESSELS, SVT NOTED IN LT PX AND MD THIGH GSV, Initialized on 09/29/16 09:26 - END OF NOTE -Acute Extensive left lower extremity iliofemoral DVT with significant symptomatology: Continue IV heparin drip for endovascular procedures to be performed when patient is stable. Hold off starting oral Coumadin for vascular procedure -Acute renal failure, vasomotor nephropathy, present on admission, Renal function has worsened: consulted nephrology, Once patient has mandaeism of renal function, then thrombolysis and thrombectomy can be performed. -Acute on chronic anemia, microcytic: Repeat levels to monitor closely -Uncontrolled type 2 diabetes mellitus with hyperglycemia: Add sliding scale and add ADA diet -Tobacco dependency: Counseling on stopping done -Acute cystitis/UTI, poa: Levaquin started by prop setter, Dr. Henriquez -DVT prophylaxis: On heparin drip History Interval history: Patient seen and examined. Follow up on leg swelling. Overnight uneventful. No cp, n/v or severe headaches. Imaging, old records, testing, labs, nursing notes reviewed. Hospitalist Physical - Physical exam Narrative exam: GEN: WDWN, NAD, AWAKE, ALERT, ORIENTATED x 3 HEENT: NCAT, PERRL, EOMI, OP CLEAR NECK: SUPPLE, NO THYROMEGALY, NO JVD, NO LAD CVS: RRR, NORMAL S1S2 LUNGS/CHEST: CTA B, NORMAL CHEST EXPANSION B, GOOD AIR ENTRY B ABD: SOFT, NTND, GBS, NO REBOUND OR GUARDING EXT/SKIN: Left leg is significantly larger than right leg, good peripheral pulses bilaterally MSK: FROM X 4 EXTREMITIES NEURO: CN 2-12 GROSSLY INTACT, NO FOCAL DEFICITS PSY: CALM, - Constitutional Vitals: Temp Pulse Resp BP Pulse Ox 97.8 F 64 20 138/60 98 09/30/16 08:08 09/30/16 08:08 09/30/16 08:08 09/30/16 08:08 09/30/16 08:08 Results - Labs CBC & Chem 7: 09/30/16 09:32 09/30/16 09:32 Labs: Laboratory Last Values WBC 7.3 K/mm3 (4.5-11.0) 09/28/16 14:57 RBC 3.70 M/mm3 (3.65-5.03) 09/28/16 14:57 Hgb 8.0 gm/dl (10.1-14.3) L 09/30/16 09:32 Hct 25.3 % (30.3-42.9) L 09/30/16 09:32 MCV 80 fl (79-97) 09/28/16 14:57 MCH 25 pg (28-32) L 09/28/16 14:57 MCHC 31 % (30-34) 09/28/16 14:57 RDW 20.6 % (13.2-15.2) H 09/28/16 14:57 Plt Count 139 K/mm3 (140-440) L 09/30/16 09:32 Lymph % (Auto) 13.0 % (13.4-35.0) L 09/28/16 14:57 [place] % (Auto) 8.6 % (0.0-7.3) H 09/28/16 14:57 Eos % (Auto) 0.6 % (0.0-4.3) 09/28/16 14:57 Baso % (Auto) 0.4 % (0.0-1.8) 09/28/16 14:57 Lymph # 1.0 K/mm3 (1.2-5.4) L 09/28/16 14:57 [place] # 0.6 K/mm3 (0.0-0.8) 09/28/16 14:57 Eos # 0.0 K/mm3 (0.0-0.4) 09/28/16 14:57 Baso # 0.0 K/mm3 (0.0-0.1) 09/28/16 14:57 Seg Neutrophils % 77.4 % (40.0-70.0) H 09/28/16 14:57 Seg Neutrophils # 5.7 K/mm3 (1.8-7.7) 09/28/16 14:57 PT 14.3 Sec. (12.2-14.9) 09/28/16 17:35 INR 1.06 (0.87-1.13) 09/28/16 17:35 APTT 31.5 Sec. (24.2-36.6) 09/28/16 17:35 Heparin Anti-Xa Level 0.53 U.I./ml (0.3-0.7) 09/30/16 09:32 Sodium 141 mmol/L (137-145) 09/30/16 09:32 Potassium 3.9 mmol/L (3.6-5.0) 09/30/16 09:32 Chloride 108.4 mmol/L (98-107) H 09/30/16 09:32 Carbon Dioxide 17 mmol/L (22-30) L 09/30/16 09:32 Anion Gap 20 mmol/L 09/30/16 09:32 BUN 37 mg/dL (7-17) H 09/30/16 09:32 Creatinine 4.0 mg/dL (0.7-1.2) H 09/30/16 09:32 Estimated GFR 14 ml/min 09/30/16 09:32 BUN/Creatinine Ratio 9.25 % 09/30/16 09:32 Glucose 107 mg/dL (65-100) H 09/30/16 09:32 POC Glucose 137 (70-105) H 09/29/16 07:40 Calcium 8.2 mg/dL (8.4-10.2) L 09/30/16 09:32 Total Creatine Kinase 62 units/L (30-135) 09/28/16 14:57 CK-MB (CK-2) 1.3 ng/mL (0.0-4.0) 09/28/16 14:57 CK-MB (CK-2) Rel Index 2.0 (0-4) 09/28/16 14:57 Troponin T < 0.010 ng/mL (0.00-0.029) 09/28/16 14:57 NT-Pro-B Natriuret Pep 194.6 pg/mL (0-900) 09/28/16 14:57 Urine Color Yellow (Yellow) 09/30/16 00:30 Urine Turbidity Cloudy (Clear) 09/30/16 00:30 Urine pH 5.0 (5.0-7.0) 09/30/16 00:30 Ur Specific [place] 1.011 (1.003-1.030) 09/30/16 00:30 Urine Protein <15 mg/dl mg/dL (Negative) 09/30/16 00:30 Urine Glucose (UA) Neg mg/dL (Negative) 09/30/16 00:30 Urine Ketones Neg mg/dL (Negative) 09/30/16 00:30 Urine Blood Sm (Negative) 09/30/16 00:30 Urine Nitrite Neg (Negative) 09/30/16 00:30 Urine Bilirubin Neg (Negative) 09/30/16 00:30 Urine Urobilinogen < 2.0 mg/dL (<2.0) 09/30/16 00:30 Ur Leukocyte Esterase Lg (Negative) 09/30/16 00:30 Urine WBC (Auto) 50.0 /HPF (0.0-6.0) H 09/30/16 00:30 Urine RBC (Auto) 7.0 /HPF (0.0-6.0) 09/30/16 00:30 U Epithel Cells (Auto) 3.0 /HPF (0-13.0) 09/30/16 00:30 Urine Bacteria (Auto) 4+ /HPF (Negative) 09/30/16 00:30 Granular Casts 4 /LPF 09/30/16 00:30 Urine Mucus Few /HPF 09/30/16 00:30 Urine Creatinine 130.8 mg/dL (0.1-20.0) H 09/30/16 00:30 Protein/Creatinin Ratio 0.36 09/30/16 00:30 Urine Total Protein 47 mg/dL (5-11.8) H 09/30/16 00:30
[2016-09-30] MEDS: ZOFRAN IV PRN (12:38)
--- NOTE | 2016-09-30 13:28 | Ultrasound Report ---
RENAL ULTRASOUND: 09/29/16 16:35:00 CLINICAL: Elevated creatinine. FINDINGS: High resolution ultrasound demonstrated normal nondilated renal collecting systems. Mild increased echogenicity of the kidneys. No renal mass or cyst. A few non-shadowing echogenic foci in both kidneys which may be vascular calcifications. The right kidney measures 10.2 x 4.9 x 4.4-cm. The renal parenchyma measures 1.5-cm in thickness. The left kidney measures 10.2 x 5.2 x 4.1-cm. The renal parenchyma measures 1.3-cm in thickness. Normal urinary bladder. IMPRESSION: Bilateral medical renal disease without hydronephrosis. Vascular calcifications versus tiny nonobstructing urinary calculi.
[2016-09-30] MEDS: PROTONIX PO SCH (14:54)
[2016-09-30] MEDS: ZOCOR PO SCH (21:40)
[2016-10-01] MEDS: DILAUDID IV PRN ×7 (01:50→23:11)
[2016-10-01] MEDS: HEPARIN/ 0.45% NACL-25,000 UNIT/500 ML 25,000 UNITS/500 ML BAG IV SCH (01:58)
[2016-10-01] MEDS: SYNTHROID PO SCH (06:06)
[2016-10-01] MEDS: NACL 0.9% 1000 ML 1,000 ML IV SCH (06:53)
[2016-10-01 07:29] LABS: Hematocrit 26.1 % (30.3-42.9); Hemoglobin 8.1 gm/dl (10.1-14.3); Mean Corpuscular HGB Conc 31 % (30-34); Mean Corpuscular Volume 81 fl (79-97); Platelet Count 156 K/mm3 (140-440); Red Blood Count 3.24 M/mm3 (3.65-5.03); White Blood Count 4.6 K/mm3 (4.5-11.0)
[2016-10-01 07:37] LABS: Mean Corpuscular Hemoglobin 25 pg (28-32); Red Cell Distribution Width 20.9 % (13.2-15.2)
[2016-10-01 07:47] LABS: BUN/Creatinine Ratio 10.31; Calcium 8.1 mg/dL (8.4-10.2); Chloride 109.9 mmol/L (98-107); Potassium 4.3 mmol/L (3.6-5.0)
[2016-10-01 07:52] LABS: INR 0.95 (0.87-1.13)
[2016-10-01] MEDS: PERCOCET 5/325 PO PRN ×3 (08:24→21:53)
--- NOTE | 2016-10-01 08:56 | Progress Note ---
Assessment and Plan 1. DONNA likely Prerenal azotemia in the setting of UTI possibly ATN / chronic NSAID use. 2. Acute left lower extremity iliofemoral DVT. 3. Essential HTN 4. Chronic pain syndrome 5. Nephrolithiasis 6. DM II 7. UTI Plan: UA shows evidence of UTI, given also above symptoms will treat with levaquin ( pt has penicillin allergy) after obtaining urine culture. renal function marginally better today, Cr at 3,2mg/dl Renal U/S b/l echogenic kidneys, however no evidence of obstruction. non- obstructive nephrolithiasis seen. given worsening hyperchloremic met acidosis will switch IVF to D5 1/2 NS Avoid nephrotoxins Maintain MAP>=65 cont to hold metformin and Trimetrene HCT Further recommendations to follow based on response to above measures Subjective Date of service: 10/01/16 Principal diagnosis: left lower extremity iliofemoral DVT Interval history: pt awake, alert, reports improving dysuria, burning sensation upon urination. Denies fever, chills, nausea, vomiting. Objective - Vital Signs Vital signs: Vital Signs - 12hr 09/30/16 10/01/16 21:22 08:00 Temperature 99 F Pulse Rate [ 56 L Left Radial] Respiratory 22 Rate Blood Pressure 118/66 [Right Arm] O2 Sat by Pulse 96 96 Oximetry - General Appearance General appearance: well-developed, well-nourished, appears stated age EENT: ATNC, PERRL, mucous membranes moist Neck: no JVD Respiratory: Present: Clear to Ascultation Cardiology: regular, S1S2 Gastrointestinal: normoactive bowel sounds Integumentary: no rash, other (no edema ) Neurologic: no focal deficit, alert and oriented x3, strength 5/5, CN 3-12 intact Psychiatric: mood/affect appropriate, cooperative - Lab 10/01/16 06:39 10/01/16 06:39 Most recent lab results Calcium 8.1 mg/dL (8.4-10.2) L 10/01/16 06:39 Urine Creatinine 130.8 mg/dL (0.1-20.0) H 09/30/16 00:30 Urine Total Protein 47 mg/dL (5-11.8) H 09/30/16 00:30
[2016-10-01] MEDS: LEVAQUIN PO SCH (10:01)
[2016-10-01] MEDS: D5/0.45NS 1,000 ML IV SCH ×2 (10:04→20:05)
[2016-10-01] MEDS: PROTONIX PO SCH (10:04)
--- NOTE | 2016-10-01 10:28 | Progress Note ---
Assessment and Plan Assessment and plan: Patient is 61 yo woman with a history of hypertension, diabetes mellitus type 2 , tobacco dependency and leg chronic venous insufficiency status post iliac stent placements by Dr. Zimmerman in July 2016 for left lower extremity swelling which initially improved, but now presents with 1 week of signs and symptoms of left lower extremity DVT who was found to have an acute iliofemoral DVT at the [facility] Vascular office. VQ scan low probability. 09/29/16 09:26 - Radiology Dept. Note by ANIBAL LAMBERT, [facility] Num: [id number] : 1955 Patient Age: 61, VASCULAR LAB PRELIMINARY REPORT, BLE VENOUS DOPPLER COMPLETED, ACUTE OCCLUSIVE DVT NOTED IN LT DS EIV, CFV, DFV, SFV, POP V AND EXTENDING TO CALF VESSELS, SVT NOTED IN LT PX AND MD THIGH GSV, Initialized on 09/29/16 09:26 - END OF NOTE -Acute Extensive left lower extremity iliofemoral DVT with significant symptomatology: Continue IV heparin drip for endovascular procedures to be performed when patient is stable. Hold off starting oral Coumadin for vascular procedure -Acute renal failure, vasomotor nephropathy, present on admission, Renal function has worsened: consulted nephrology, Once patient has rastafarian of renal function, then thrombolysis and thrombectomy can be performed. -Acute on chronic anemia, microcytic: Repeat levels to monitor closely -Uncontrolled type 2 diabetes mellitus with hyperglycemia: Add sliding scale and add ADA diet -Tobacco dependency: Counseling on stopping done -Acute cystitis/UTI, poa: Levaquin started by enrollment clerk, Dr. Henriquez -DVT prophylaxis: On heparin drip 10/01/16: Patient Cr decreased, h/h steady today. Still trying to get Cr better for thromboectomy, Warfarin on hold for possible procedure. History Interval history: Patient seen and examined. Follow up on leg swelling. Overnight uneventful. No cp, n/v or severe headaches. Imaging, old records, testing, labs, nursing notes reviewed. Hospitalist Physical - Physical exam Narrative exam: GEN: WDWN, NAD, AWAKE, ALERT, ORIENTATED x 3 HEENT: NCAT, PERRL, EOMI, OP CLEAR NECK: SUPPLE, NO THYROMEGALY, NO JVD, NO LAD CVS: RRR, NORMAL S1S2 LUNGS/CHEST: CTA B, NORMAL CHEST EXPANSION B, GOOD AIR ENTRY B ABD: SOFT, NTND, GBS, NO REBOUND OR GUARDING EXT/SKIN: Left leg is significantly larger than right leg, good peripheral pulses bilaterally MSK: FROM X 4 EXTREMITIES NEURO: CN 2-12 GROSSLY INTACT, NO FOCAL DEFICITS PSY: CALM, - Constitutional Vitals: Temp Pulse Resp BP Pulse Ox 99 F 56 L 22 118/66 96 10/01/16 08:00 10/01/16 08:00 10/01/16 08:00 10/01/16 08:00 10/01/16 08:00 Results - Labs CBC & Chem 7: 10/01/16 06:39 10/01/16 06:39 Labs: Laboratory Last Values WBC 4.6 K/mm3 (4.5-11.0) 10/01/16 06:39 RBC 3.24 M/mm3 (3.65-5.03) L 10/01/16 06:39 Hgb 8.1 gm/dl (10.1-14.3) L 10/01/16 06:39 Hct 26.1 % (30.3-42.9) L 10/01/16 06:39 MCV 81 fl (79-97) 10/01/16 06:39 MCH 25 pg (28-32) L 10/01/16 06:39 MCHC 31 % (30-34) 10/01/16 06:39 RDW 20.9 % (13.2-15.2) H 10/01/16 06:39 Plt Count 156 K/mm3 (140-440) 10/01/16 06:39 Lymph % (Auto) 13.0 % (13.4-35.0) L 09/28/16 14:57 [place] % (Auto) 8.6 % (0.0-7.3) H 09/28/16 14:57 Eos % (Auto) 0.6 % (0.0-4.3) 09/28/16 14:57 Baso % (Auto) 0.4 % (0.0-1.8) 09/28/16 14:57 Lymph # 1.0 K/mm3 (1.2-5.4) L 09/28/16 14:57 [place] # 0.6 K/mm3 (0.0-0.8) 09/28/16 14:57 Eos # 0.0 K/mm3 (0.0-0.4) 09/28/16 14:57 Baso # 0.0 K/mm3 (0.0-0.1) 09/28/16 14:57 Seg Neutrophils % 77.4 % (40.0-70.0) H 09/28/16 14:57 Seg Neutrophils # 5.7 K/mm3 (1.8-7.7) 09/28/16 14:57 PT 13.2 Sec. (12.2-14.9) 10/01/16 06:39 INR 0.95 (0.87-1.13) 10/01/16 06:39 APTT 31.5 Sec. (24.2-36.6) 09/28/16 17:35 Heparin Anti-Xa Level 0.53 U.I./ml (0.3-0.7) 09/30/16 09:32 Sodium 141 mmol/L (137-145) 10/01/16 06:39 Potassium 4.3 mmol/L (3.6-5.0) 10/01/16 06:39 Chloride 109.9 mmol/L (98-107) H 10/01/16 06:39 Carbon Dioxide 15 mmol/L (22-30) L 10/01/16 06:39 Anion Gap 20 mmol/L 10/01/16 06:39 BUN 33 mg/dL (7-17) H 10/01/16 06:39 Creatinine 3.2 mg/dL (0.7-1.2) H 10/01/16 06:39 Estimated GFR 18 ml/min 10/01/16 06:39 BUN/Creatinine Ratio 10.31 % 10/01/16 06:39 Glucose 127 mg/dL (65-100) H 10/01/16 06:39 POC Glucose 141 (70-105) H 10/01/16 05:38 Calcium 8.1 mg/dL (8.4-10.2) L 10/01/16 06:39 Total Creatine Kinase 62 units/L (30-135) 09/28/16 14:57 CK-MB (CK-2) 1.3 ng/mL (0.0-4.0) 09/28/16 14:57 CK-MB (CK-2) Rel Index 2.0 (0-4) 09/28/16 14:57 Troponin T < 0.010 ng/mL (0.00-0.029) 09/28/16 14:57 NT-Pro-B Natriuret Pep 194.6 pg/mL (0-900) 09/28/16 14:57 Urine Color Yellow (Yellow) 09/30/16 00:30 Urine Turbidity Cloudy (Clear) 09/30/16 00:30 Urine pH 5.0 (5.0-7.0) 09/30/16 00:30 Ur Specific [place] 1.011 (1.003-1.030) 09/30/16 00:30 Urine Protein <15 mg/dl mg/dL (Negative) 09/30/16 00:30 Urine Glucose (UA) Neg mg/dL (Negative) 09/30/16 00:30 Urine Ketones Neg mg/dL (Negative) 09/30/16 00:30 Urine Blood Sm (Negative) 09/30/16 00:30 Urine Nitrite Neg (Negative) 09/30/16 00:30 Urine Bilirubin Neg (Negative) 09/30/16 00:30 Urine Urobilinogen < 2.0 mg/dL (<2.0) 09/30/16 00:30 Ur Leukocyte Esterase Lg (Negative) 09/30/16 00:30 Urine WBC (Auto) 50.0 /HPF (0.0-6.0) H 09/30/16 00:30 Urine RBC (Auto) 7.0 /HPF (0.0-6.0) 09/30/16 00:30 U Epithel Cells (Auto) 3.0 /HPF (0-13.0) 09/30/16 00:30 Urine Bacteria (Auto) 4+ /HPF (Negative) 09/30/16 00:30 Granular Casts 4 /LPF 09/30/16 00:30 Urine Mucus Few /HPF 09/30/16 00:30 Urine Creatinine 130.8 mg/dL (0.1-20.0) H 09/30/16 00:30 Protein/Creatinin Ratio 0.36 09/30/16 00:30 Urine Total Protein 47 mg/dL (5-11.8) H 09/30/16 00:30
[2016-10-01] MEDS: ZOCOR PO SCH (21:54)
[2016-10-02] MEDS: PERCOCET 5/325 PO PRN ×2 (04:35→14:13)
[2016-10-02] MEDS: HEPARIN/ 0.45% NACL-25,000 UNIT/500 ML 25,000 UNITS/500 ML BAG IV SCH (06:23)
[2016-10-02] MEDS: D5/0.45NS 1,000 ML IV SCH ×2 (06:30→16:09)
[2016-10-02] MEDS: DILAUDID IV PRN ×6 (06:31→18:34)
[2016-10-02] MEDS: SYNTHROID PO SCH (06:35)
[2016-10-02 07:55] LABS: Hematocrit 24.4 % (30.3-42.9); Hemoglobin 7.7 gm/dl (10.1-14.3); Mean Corpuscular HGB Conc 32 % (30-34); Mean Corpuscular Volume 80 fl (79-97); Platelet Count 152 K/mm3 (140-440); Red Blood Count 3.06 M/mm3 (3.65-5.03); White Blood Count 4.2 K/mm3 (4.5-11.0)
[2016-10-02 07:56] LABS: Mean Corpuscular Hemoglobin 25 pg (28-32); Red Cell Distribution Width 20.4 % (13.2-15.2)
[2016-10-02 08:09] LABS: BUN/Creatinine Ratio 14.73; Calcium 8.5 mg/dL (8.4-10.2); Chloride 110.8 mmol/L (98-107)
--- NOTE | 2016-10-02 09:32 | Progress Note ---
Assessment and Plan 1. DONNA likely Prerenal azotemia in the setting of UTI possibly ATN / chronic NSAID use. 2. Acute left lower extremity iliofemoral DVT. 3. Essential HTN 4. Chronic pain syndrome 5. Nephrolithiasis 6. DM II 7. UTI Plan: UA shows evidence of UTI, given also above symptoms will treat with levaquin ( pt has penicillin allergy) after obtaining urine culture. Renal function continues to improve, 1.7 today(from a peak of 4). Baseline CR unavailable. Renal U/S b/l echogenic kidneys, however no evidence of obstruction. non- obstructive nephrolithiasis seen. Continue IVF Avoid nephrotoxins-consider doing the peripheral angio in am Sunday of CR continues to improve. Maintain MAP>=65 Continue to hold metformin and Trimetrene HCT Further recommendations to follow based on response to above measures Subjective Date of service: 10/02/16 Principal diagnosis: left lower extremity iliofemoral DVT Interval history: No SOB/CP Objective - Exam Narrative Exam: General appearance: well-developed, well-nourished, appears stated age EENT: ATNC, PERRL, mucous membranes moist Neck: no JVD, No lmphdenopathy, trachea midline Respiratory: Present: Clear to Ascultation, no wheezing Cardiology: regular, S1S2 WNL, no m/g/r Gastrointestinal: normoactive bowel sounds, non tender Integumentary: no rash, other (no edema ) Neurologic: no focal deficit, alert and oriented x3, strength 5/5, CN 3-12 intact Psychiatric: mood/affect appropriate, cooperative - Vital Signs Vital signs: Vital Signs - 12hr 10/01/16 10/02/16 10/02/16 21:49 04:00 08:36 Temperature 98 F 97.8 F 97.1 F L Pulse Rate [ 64 56 L 58 L Left Posterior Tibial] Respiratory 16 16 20 Rate Blood Pressure 167/68 173/74 182/74 [Right Arm] O2 Sat by Pulse 97 98 Oximetry - Lab 10/02/16 06:59 10/02/16 06:59 Most recent lab results Calcium 8.5 mg/dL (8.4-10.2) 10/02/16 06:59 Urine Creatinine 130.8 mg/dL (0.1-20.0) H 09/30/16 00:30 Urine Total Protein 47 mg/dL (5-11.8) H 09/30/16 00:30
--- NOTE | 2016-10-02 10:02 | Progress Note ---
Assessment and Plan Assessment and plan: Patient is 61 yo woman with a history of hypertension, diabetes mellitus type 2 , tobacco dependency and chronic leg venous insufficiency status post iliac stent placements by Dr. Zimmerman in July 2016 for left lower extremity swelling which initially improved, but now presents with 1 week of signs and symptoms of left lower extremity DVT who was found to have an acute iliofemoral DVT at the [facility] Vascular office. VQ scan low probability. 09/29/16 09:26 - Radiology Dept. [facility]: [id number] : 1955 Patient Age: 61, VASCULAR LAB PRELIMINARY REPORT, BLE VENOUS DOPPLER COMPLETED, ACUTE OCCLUSIVE DVT NOTED IN LT DS EIV, CFV, DFV, SFV, POP V AND EXTENDING TO CALF VESSELS, SVT NOTED IN LT PX AND MD THIGH GSV, Initialized on 09/29/16 09:26 - END OF NOTE -Acute Extensive left lower extremity iliofemoral DVT with significant symptomatology: Continue IV heparin drip for endovascular procedures to be performed when patient is stable. Hold off starting oral Coumadin for vascular procedure -Acute renal failure, vasomotor nephropathy, present on admission, Renal function has worsened: consulted nephrology, Once patient has sikhism of renal function, then thrombolysis and thrombectomy can be performed. -Acute on chronic anemia, microcytic: Repeat levels to monitor closely -Uncontrolled type 2 diabetes mellitus with hyperglycemia: Add sliding scale and add ADA diet -Tobacco dependency: Counseling on stopping done -Acute cystitis/UTI, poa: Levaquin started by research archaeologist, Dr. Henriquez -DVT prophylaxis: On heparin drip 10/01/16: Patient Cr decreased, h/h steady today. Still trying to get Cr better for thromboectomy, Warfarin on hold for possible procedure. 10/02/2016: Patient creatinine improving, down to 1.7, hemoglobin/hematocrit dropped on IV heparin without signs of bleeding so continue IV heparin with the benefits outweighing the risks at this particular time (if hgb less then consider stopping iv heparin) . If creatinine continues to improve possibly thrombectomy tomorrow once on Sunday. We'll repeat H&H. Follow urine culture which is pending. I ordered FOBT, follow results History Interval history: Patient seen and examined. Follow up on leg swelling which is worsening. Overnight uneventful. No cp, n/v or severe headaches. Imaging, old records, testing, labs, nursing notes reviewed. Mother is at bedside Hospitalist Physical - Physical exam Narrative exam: GEN: WDWN, NAD, AWAKE, ALERT, ORIENTATED x 3 HEENT: NCAT, PERRL, EOMI, OP CLEAR NECK: SUPPLE, NO THYROMEGALY, NO JVD, NO LAD CVS: RRR, NORMAL S1S2 LUNGS/CHEST: CTA B, NORMAL CHEST EXPANSION B, GOOD AIR ENTRY B ABD: SOFT, NTND, GBS, NO REBOUND OR GUARDING EXT/SKIN: Left leg is significantly larger than right leg, good peripheral pulses bilaterally MSK: FROM X 4 EXTREMITIES NEURO: CN 2-12 GROSSLY INTACT, NO FOCAL DEFICITS PSY: CALM, - Constitutional Vitals: Temp Pulse Resp BP Pulse Ox 97.1 F L 58 L 20 182/74 98 10/02/16 08:36 10/02/16 08:36 10/02/16 08:36 10/02/16 08:36 10/02/16 08:36 Results - Labs CBC & Chem 7: 10/02/16 06:59 10/02/16 06:59 Labs: Laboratory Last Values WBC 4.2 K/mm3 (4.5-11.0) L 10/02/16 06:59 RBC 3.06 M/mm3 (3.65-5.03) L 10/02/16 06:59 Hgb 7.7 gm/dl (10.1-14.3) L 10/02/16 06:59 Hct 24.4 % (30.3-42.9) L 10/02/16 06:59 MCV 80 fl (79-97) 10/02/16 06:59 MCH 25 pg (28-32) L 10/02/16 06:59 MCHC 32 % (30-34) 10/02/16 06:59 RDW 20.4 % (13.2-15.2) H 10/02/16 06:59 Plt Count 152 K/mm3 (140-440) 10/02/16 06:59 Lymph % (Auto) 13.0 % (13.4-35.0) L 09/28/16 14:57 [place] % (Auto) 8.6 % (0.0-7.3) H 09/28/16 14:57 Eos % (Auto) 0.6 % (0.0-4.3) 09/28/16 14:57 Baso % (Auto) 0.4 % (0.0-1.8) 09/28/16 14:57 Lymph # 1.0 K/mm3 (1.2-5.4) L 09/28/16 14:57 [place] # 0.6 K/mm3 (0.0-0.8) 09/28/16 14:57 Eos # 0.0 K/mm3 (0.0-0.4) 09/28/16 14:57 Baso # 0.0 K/mm3 (0.0-0.1) 09/28/16 14:57 Seg Neutrophils % 77.4 % (40.0-70.0) H 09/28/16 14:57 Seg Neutrophils # 5.7 K/mm3 (1.8-7.7) 09/28/16 14:57 PT 13.2 Sec. (12.2-14.9) 10/01/16 06:39 INR 0.95 (0.87-1.13) 10/01/16 06:39 APTT 31.5 Sec. (24.2-36.6) 09/28/16 17:35 Heparin Anti-Xa Level 0.54 U.I./ml (0.3-0.7) 10/01/16 13:15 Sodium 142 mmol/L (137-145) 10/02/16 06:59 Potassium 4.0 mmol/L (3.6-5.0) 10/02/16 06:59 Chloride 110.8 mmol/L (98-107) H 10/02/16 06:59 Carbon Dioxide 17 mmol/L (22-30) L 10/02/16 06:59 Anion Gap 18 mmol/L 10/02/16 06:59 BUN 28 mg/dL (7-17) H 10/02/16 06:59 Creatinine 1.9 mg/dL (0.7-1.2) H 10/02/16 06:59 Estimated GFR 33 ml/min 10/02/16 06:59 BUN/Creatinine Ratio 14.73 % 10/02/16 06:59 Glucose 125 mg/dL (65-100) H 10/02/16 06:59 POC Glucose 144 (70-105) H 10/02/16 06:07 Calcium 8.5 mg/dL (8.4-10.2) 10/02/16 06:59 Total Creatine Kinase 62 units/L (30-135) 09/28/16 14:57 CK-MB (CK-2) 1.3 ng/mL (0.0-4.0) 09/28/16 14:57 CK-MB (CK-2) Rel Index 2.0 (0-4) 09/28/16 14:57 Troponin T < 0.010 ng/mL (0.00-0.029) 09/28/16 14:57 NT-Pro-B Natriuret Pep 194.6 pg/mL (0-900) 09/28/16 14:57 Urine Color Yellow (Yellow) 09/30/16 00:30 Urine Turbidity Cloudy (Clear) 09/30/16 00:30 Urine pH 5.0 (5.0-7.0) 09/30/16 00:30 Ur Specific [place] 1.011 (1.003-1.030) 09/30/16 00:30 Urine Protein <15 mg/dl mg/dL (Negative) 09/30/16 00:30 Urine Glucose (UA) Neg mg/dL (Negative) 09/30/16 00:30 Urine Ketones Neg mg/dL (Negative) 09/30/16 00:30 Urine Blood Sm (Negative) 09/30/16 00:30 Urine Nitrite Neg (Negative) 09/30/16 00:30 Urine Bilirubin Neg (Negative) 09/30/16 00:30 Urine Urobilinogen < 2.0 mg/dL (<2.0) 09/30/16 00:30 Ur Leukocyte Esterase Lg (Negative) 09/30/16 00:30 Urine WBC (Auto) 50.0 /HPF (0.0-6.0) H 09/30/16 00:30 Urine RBC (Auto) 7.0 /HPF (0.0-6.0) 09/30/16 00:30 U Epithel Cells (Auto) 3.0 /HPF (0-13.0) 09/30/16 00:30 Urine Bacteria (Auto) 4+ /HPF (Negative) 09/30/16 00:30 Granular Casts 4 /LPF 09/30/16 00:30 Urine Mucus Few /HPF 09/30/16 00:30 Urine Creatinine 130.8 mg/dL (0.1-20.0) H 09/30/16 00:30 Protein/Creatinin Ratio 0.36 09/30/16 00:30 Urine Total Protein 47 mg/dL (5-11.8) H 09/30/16 00:30
[2016-10-02] MEDS: LEVAQUIN PO SCH (10:43)
[2016-10-02] MEDS: PROTONIX PO SCH (10:43)
--- NOTE | 2016-10-02 12:11 | Progress Note ---
Assessment and Plan Pt admitted with extensive LLE. Currently with resolving ARF. Percutaneous intervention on hold till cleared by nephrology given risk of contrast nephropathy. Discussed with Pt and family at the bedside. - Patient Problems (1) Left leg DVT Current Visit: Yes Status: Acute Qualifiers: Affected thrombotic vein of extremity: femoral Chronicity: acute Qualified Code(s): I82.412 - Acute embolism and thrombosis of left femoral vein Subjective Date of service: 10/02/16 Principal diagnosis: left lower extremity iliofemoral DVT Interval history: Patient is awake and alert. Complains of multiple frustrations with hospitalization. Complains of increased swelling of her thigh. Complains of increased "heartburn" following conversion from omeprazole to Protonix. Objective - Constitutional Vitals: Vital Signs - 12hr 10/02/16 10/02/16 04:00 08:36 Temperature 97.8 F 97.1 F L Pulse Rate [ 56 L 58 L Left Posterior Tibial] Respiratory 16 20 Rate Blood Pressure 173/74 182/74 [Right Arm] O2 Sat by Pulse 98 Oximetry General appearance: Present: no acute distress - EENT Eyes: EOM intact ENT: hearing intact - Respiratory Respiratory effort: normal Extremities: no ischemia Extremity abnormal: edema - Neurologic Neurologic: no focal deficits - Psychiatric Psychiatric: intact judgment & insight, cooperative - Labs CBC & Chem 7: 10/02/16 12:31 10/02/16 06:59 Labs: Abnormal lab results 10/01/16 10/01/16 10/01/16 Range/Units 11:30 16:00 21:20 WBC (4.5-11.0) K/mm3 RBC (3.65-5.03) M/mm3 Hgb (10.1-14.3) gm/dl Hct (30.3-42.9) % MCH (28-32) pg RDW (13.2-15.2) % Chloride (98-107) mmol/L Carbon Dioxide (22-30) mmol/L BUN (7-17) mg/dL Creatinine (0.7-1.2) mg/dL Glucose (65-100) mg/dL POC Glucose 155 H 182 H 160 H (70-105) 10/02/16 10/02/16 10/02/16 Range/Units 06:07 06:59 06:59 WBC 4.2 L (4.5-11.0) K/mm3 RBC 3.06 L (3.65-5.03) M/mm3 Hgb 7.7 L (10.1-14.3) gm/dl Hct 24.4 L (30.3-42.9) % MCH 25 L (28-32) pg RDW 20.4 H (13.2-15.2) % Chloride 110.8 H (98-107) mmol/L Carbon Dioxide 17 L (22-30) mmol/L BUN 28 H (7-17) mg/dL Creatinine 1.9 H (0.7-1.2) mg/dL Glucose 125 H (65-100) mg/dL POC Glucose 144 H (70-105) /24/17 Range/Units 11:54 WBC (4.5-11.0) K/mm3 RBC (3.65-5.03) M/mm3 Hgb (10.1-14.3) gm/dl Hct (30.3-42.9) % MCH (28-32) pg RDW (13.2-15.2) % Chloride (98-107) mmol/L Carbon Dioxide (22-30) mmol/L BUN (7-17) mg/dL Creatinine (0.7-1.2) mg/dL Glucose (65-100) mg/dL POC Glucose 145 H (70-105)
[2016-10-02 13:14] LABS: Hematocrit 25.8 % (30.3-42.9)
[2016-10-02] MEDS ORDERED: PEPCID PO SCH ×2 (18:00)
[2016-10-02] MEDS: ZOCOR PO SCH (21:43)
[2016-10-02] MEDS: ZOFRAN IV PRN (22:42)
[2016-10-03] MEDS: DILAUDID IV PRN ×5 (03:07→21:17)
[2016-10-03] MEDS: D5/0.45NS 1,000 ML IV SCH ×2 (03:18→17:18)
[2016-10-03] MEDS: SYNTHROID PO SCH (05:34)
[2016-10-03 06:37] LABS: BUN/Creatinine Ratio 14.61; Calcium 8.1 mg/dL (8.4-10.2); Chloride 110.2 mmol/L (98-107)
[2016-10-03 06:50] LABS: Potassium 5.2 mmol/L (3.6-5.0)
[2016-10-03] MEDS: PERCOCET 5/325 PO PRN ×2 (07:13→15:14)
[2016-10-03] MEDS: PROTONIX PO SCH (09:59)
[2016-10-03] MEDS: LEVAQUIN PO SCH (09:59)
[2016-10-03] MEDS: PEPCID PO SCH ×2 (09:59→12:45)
[2016-10-03] MEDS: HEPARIN/ 0.45% NACL-25,000 UNIT/500 ML 25,000 UNITS/500 ML BAG IV SCH (10:00)
--- NOTE | 2016-10-03 10:45 | Progress Note ---
Assessment and Plan Assessment and plan: Acute Extensive left lower extremity iliofemoral DVT with significant symptomatology: Continue IV heparin drip for endovascular procedures to be performed when patient is stable. Hold off starting oral Coumadin for vascular procedure Acute renal failure, vasomotor nephropathy, present on admission, Renal function has improve. Nephrology following. Once patient has buddhist of renal function, then thrombolysis and thrombectomy can be performed. Acute on chronic anemia, microcytic: Repeat levels to monitor closely Uncontrolled type 2 diabetes mellitus. Continue sliding scale and ADA diet Tobacco dependency: Counseling on stopping completed Acute cystitis/UTI, poa: cont. Levaquin DVT prophylaxis: On heparin drip History Interval history: No new issues overnight. Hospitalist Physical - Constitutional Vitals: Temp Pulse Resp BP Pulse Ox 98.9 F 60 16 130/70 98 10/03/16 07:25 10/03/16 07:25 10/03/16 07:25 10/03/16 07:25 10/03/16 07:25 General appearance: Present: no acute distress - EENT Eyes: Present: PERRL, EOM intact ENT: hearing intact, clear oral mucosa, dentition normal - Neck Neck: Present: supple, normal ROM - Respiratory Respiratory effort: normal Respiratory: bilateral: CTA - Cardiovascular Rhythm: regular Heart Sounds: Present: S1 & S2. Absent: gallop, rub - Extremities Extremities: no ischemia, Full ROM Extremity abnormal: edema (Left leg swelling) - Abdominal General gastrointestinal: soft, non-tender, non-distended, normal bowel sounds - Integumentary Integumentary: Present: clear, warm, dry - Neurologic Neurologic: CNII-XII intact, moves all extremities Results - Labs CBC & Chem 7: 10/02/16 12:31 10/03/16 03:27 Labs: Laboratory Last Values WBC 4.2 K/mm3 (4.5-11.0) L 10/02/16 06:59 RBC 3.06 M/mm3 (3.65-5.03) L 10/02/16 06:59 Hgb 8.0 gm/dl (10.1-14.3) L 10/02/16 12:31 Hct 25.8 % (30.3-42.9) L 10/02/16 12:31 MCV 80 fl (79-97) 10/02/16 06:59 MCH 25 pg (28-32) L 10/02/16 06:59 MCHC 32 % (30-34) 10/02/16 06:59 RDW 20.4 % (13.2-15.2) H 10/02/16 06:59 Plt Count 152 K/mm3 (140-440) 10/02/16 06:59 Lymph % (Auto) 13.0 % (13.4-35.0) L 09/28/16 14:57 [place] % (Auto) 8.6 % (0.0-7.3) H 09/28/16 14:57 Eos % (Auto) 0.6 % (0.0-4.3) 09/28/16 14:57 Baso % (Auto) 0.4 % (0.0-1.8) 09/28/16 14:57 Lymph # 1.0 K/mm3 (1.2-5.4) L 09/28/16 14:57 [place] # 0.6 K/mm3 (0.0-0.8) 09/28/16 14:57 Eos # 0.0 K/mm3 (0.0-0.4) 09/28/16 14:57 Baso # 0.0 K/mm3 (0.0-0.1) 09/28/16 14:57 Seg Neutrophils % 77.4 % (40.0-70.0) H 09/28/16 14:57 Seg Neutrophils # 5.7 K/mm3 (1.8-7.7) 09/28/16 14:57 PT 13.2 Sec. (12.2-14.9) 10/01/16 06:39 INR 0.95 (0.87-1.13) 10/01/16 06:39 APTT 31.5 Sec. (24.2-36.6) 09/28/16 17:35 Heparin Anti-Xa Level 0.34 U.I./ml (0.3-0.7) 10/02/16 13:40 Sodium 139 mmol/L (137-145) 10/03/16 03:27 Potassium 5.2 mmol/L (3.6-5.0) H D 10/03/16 03:27 Chloride 110.2 mmol/L (98-107) H 10/03/16 03:27 Carbon Dioxide 11 mmol/L (22-30) L 10/03/16 03:27 Anion Gap 23 mmol/L 10/03/16 03:27 BUN 19 mg/dL (7-17) H 10/03/16 03:27 Creatinine 1.3 mg/dL (0.7-1.2) H 10/03/16 03:27 Estimated GFR 51 ml/min 10/03/16 03:27 BUN/Creatinine Ratio 14.61 % 10/03/16 03:27 Glucose 99 mg/dL (65-100) 10/03/16 03:27 POC Glucose 160 (70-105) H 10/03/16 06:09 Calcium 8.1 mg/dL (8.4-10.2) L 10/03/16 03:27 Total Creatine Kinase 62 units/L (30-135) 09/28/16 14:57 CK-MB (CK-2) 1.3 ng/mL (0.0-4.0) 09/28/16 14:57 CK-MB (CK-2) Rel Index 2.0 (0-4) 09/28/16 14:57 Troponin T < 0.010 ng/mL (0.00-0.029) 09/28/16 14:57 NT-Pro-B Natriuret Pep 194.6 pg/mL (0-900) 09/28/16 14:57 Urine Color Yellow (Yellow) 09/30/16 00:30 Urine Turbidity Cloudy (Clear) 09/30/16 00:30 Urine pH 5.0 (5.0-7.0) 09/30/16 00:30 Ur Specific [place] 1.011 (1.003-1.030) 09/30/16 00:30 Urine Protein <15 mg/dl mg/dL (Negative) 09/30/16 00:30 Urine Glucose (UA) Neg mg/dL (Negative) 09/30/16 00:30 Urine Ketones Neg mg/dL (Negative) 09/30/16 00:30 Urine Blood Sm (Negative) 09/30/16 00:30 Urine Nitrite Neg (Negative) 09/30/16 00:30 Urine Bilirubin Neg (Negative) 09/30/16 00:30 Urine Urobilinogen < 2.0 mg/dL (<2.0) 09/30/16 00:30 Ur Leukocyte Esterase Lg (Negative) 09/30/16 00:30 Urine WBC (Auto) 50.0 /HPF (0.0-6.0) H 09/30/16 00:30 Urine RBC (Auto) 7.0 /HPF (0.0-6.0) 09/30/16 00:30 U Epithel Cells (Auto) 3.0 /HPF (0-13.0) 09/30/16 00:30 Urine Bacteria (Auto) 4+ /HPF (Negative) 09/30/16 00:30 Granular Casts 4 /LPF 09/30/16 00:30 Urine Mucus Few /HPF 09/30/16 00:30 Urine Creatinine 130.8 mg/dL (0.1-20.0) H 09/30/16 00:30 Protein/Creatinin Ratio 0.36 09/30/16 00:30 Urine Total Protein 47 mg/dL (5-11.8) H 09/30/16 00:30
--- NOTE | 2016-10-03 12:33 | Progress Note ---
Assessment and Plan ARF continues to improve. Cr 1.3 this am. Pt has extensive DVT to the LLE. Percutaneous thrmbolysis/thrombectomy on hold until cleared by nephrology given risk of contrast nephropathy. Discussed with pt and family at the bedside and via the telephone. - Patient Problems (1) Left leg DVT Current Visit: Yes Status: Acute Qualifiers: Affected thrombotic vein of extremity: femoral Chronicity: acute Qualified Code(s): I82.412 - Acute embolism and thrombosis of left femoral vein Subjective Date of service: 10/03/16 Principal diagnosis: left lower extremity iliofemoral DVT Interval history: Pt awake and alert, without specific complaints at present. Objective - Constitutional Vitals: Vital Signs - 12hr 10/03/16 10/03/16 10/03/16 02:00 04:00 07:25 Temperature 97.4 F L 97.0 F L 98.9 F Pulse Rate [ 68 61 60 Right From Monitor] Respiratory 20 20 16 Rate Blood Pressure 157/74 163/72 130/70 [Right Arm] O2 Sat by Pulse 97 97 98 Oximetry General appearance: Present: no acute distress - EENT Eyes: EOM intact ENT: hearing intact - Respiratory Respiratory effort: normal (at rest) Extremities: no ischemia - Neurologic Neurologic: no focal deficits - Psychiatric Psychiatric: appropriate mood/affect, intact judgment & insight, cooperative - Labs CBC & Chem 7: 10/02/16 12:31 10/03/16 03:27 Labs: Abnormal lab results 10/02/16 10/02/16 10/02/16 Range/Units 12:31 16:52 22:26 Hgb 8.0 L (10.1-14.3) gm/dl Hct 25.8 L (30.3-42.9) % Potassium (3.6-5.0) mmol/L Chloride (98-107) mmol/L Carbon Dioxide (22-30) mmol/L BUN (7-17) mg/dL Creatinine (0.7-1.2) mg/dL POC Glucose 166 H 158 H (70-105) Calcium (8.4-10.2) mg/dL 10/03/16 10/03/16 Range/Units 03:27 06:09 Hgb (10.1-14.3) gm/dl Hct (30.3-42.9) % Potassium 5.2 H D (3.6-5.0) mmol/L Chloride 110.2 H (98-107) mmol/L Carbon Dioxide 11 L (22-30) mmol/L BUN 19 H (7-17) mg/dL Creatinine 1.3 H (0.7-1.2) mg/dL POC Glucose 160 H (70-105) Calcium 8.1 L (8.4-10.2) mg/dL
[2016-10-03] MEDS: APRESOLINE IV PRN (13:04)
[2016-10-03 16:06] LABS: Hematocrit 28.3 % (30.3-42.9); Hemoglobin 8.8 gm/dl (10.1-14.3); Mean Corpuscular HGB Conc 31 % (30-34); Mean Corpuscular Volume 79 fl (79-97); Platelet Count 172 K/mm3 (140-440); Red Blood Count 3.57 M/mm3 (3.65-5.03); White Blood Count 4.9 K/mm3 (4.5-11.0)
[2016-10-03 16:09] LABS: Mean Corpuscular Hemoglobin 25 pg (28-32); Red Cell Distribution Width 20.7 % (13.2-15.2)
--- NOTE | 2016-10-03 18:08 | Progress Note ---
Assessment and Plan 1. DONNA likely Prerenal azotemia in the setting of UTI possibly ATN / chronic NSAID use. 2. Acute left lower extremity iliofemoral DVT. 3. Essential HTN 4. Chronic pain syndrome 5. Nephrolithiasis 6. DM II 7. UTI Plan: UA shows evidence of UTI, given also above symptoms will treat with levaquin ( pt has penicillin allergy) after obtaining urine culture. Renal function continues to improve, 1.3 today(from a peak of 4). Baseline CR unavailable. Renal U/S b/l echogenic kidneys, however no evidence of obstruction. non- obstructive nephrolithiasis seen. Continue IVF Discussed risk and benefits of contrast exposure for her peripheral angio. She understands. OK to proceede with procedure in am. Maintain MAP>=65 Continue to hold metformin and Trimetrene HCT Subjective Date of service: 10/03/16 Principal diagnosis: left lower extremity iliofemoral DVT Interval history: No SOB/CP Objective - Exam Narrative Exam: General appearance: well-developed, well-nourished, appears stated age EENT: ATNC, PERRL, mucous membranes moist Neck: no JVD, No lmphdenopathy, trachea midline Respiratory: Present: Clear to Ascultation, no wheezing Cardiology: regular, S1S2 WNL, no m/g/r Gastrointestinal: normoactive bowel sounds, non tender Integumentary: no rash, other (no edema ) Neurologic: no focal deficit, alert and oriented x3, strength 5/5, CN 3-12 intact Psychiatric: mood/affect appropriate, cooperative - Vital Signs Vital signs: Vital Signs - 12hr 10/03/16 10/03/16 10/03/16 07:25 12:55 13:04 Temperature 98.9 F 97.9 F Pulse Rate 78 Pulse Rate [ 60 55 L Right From Monitor] Respiratory 16 15 Rate Blood Pressure 190/80 Blood Pressure 130/70 190/86 [Right Arm] O2 Sat by Pulse 98 Oximetry 10/03/16 16:03 Temperature 98 F Pulse Rate Pulse Rate [ 84 Right From Monitor] Respiratory 20 Rate Blood Pressure Blood Pressure 160/79 [Right Arm] O2 Sat by Pulse 99 Oximetry - Lab 10/03/16 15:12 10/03/16 03:27 Most recent lab results Calcium 8.1 mg/dL (8.4-10.2) L 10/03/16 03:27 Urine Creatinine 130.8 mg/dL (0.1-20.0) H 09/30/16 00:30 Urine Total Protein 47 mg/dL (5-11.8) H 09/30/16 00:30
[2016-10-03] MEDS: ZOCOR PO SCH (21:18)
[2016-10-04] MEDS: DILAUDID IV PRN ×9 (00:43→23:59)
[2016-10-04] MEDS: D5/0.45NS 1,000 ML IV SCH ×2 (00:53→12:12)
[2016-10-04] MEDS: SYNTHROID PO SCH (06:03)
[2016-10-04 07:25] LABS: Hematocrit 23.9 % (30.3-42.9); Hemoglobin 7.6 gm/dl (10.1-14.3)
--- NOTE | 2016-10-04 09:46 | Progress Note ---
Assessment and Plan Assessment and plan: Acute Extensive left lower extremity iliofemoral DVT with significant symptomatology: Continue IV heparin drip for endovascular procedures to be performed when patient is stable. Hold off starting oral Coumadin for vascular procedure Acute renal failure, vasomotor nephropathy, present on admission, Renal function has improve. Nephrology following. Once patient has worship of renal function, then thrombolysis and thrombectomy can be performed. Acute on chronic anemia, microcytic: Repeat levels to monitor closely Uncontrolled type 2 diabetes mellitus. Continue sliding scale and ADA diet Tobacco dependency: Counseling on stopping completed Acute cystitis/UTI, poa: cont. Levaquin DVT prophylaxis: On heparin drip History Interval history: No new issues overnight. Hospitalist Physical - Constitutional Vitals: Temp Pulse Resp BP Pulse Ox 98.4 F 58 L 20 177/79 100 10/04/16 07:00 10/04/16 07:00 10/04/16 07:00 10/04/16 07:00 10/04/16 07:00 General appearance: Present: no acute distress - EENT Eyes: Present: PERRL, EOM intact ENT: hearing intact, clear oral mucosa, dentition normal - Neck Neck: Present: supple, normal ROM - Respiratory Respiratory effort: normal Respiratory: bilateral: CTA - Cardiovascular Rhythm: regular Heart Sounds: Present: S1 & S2. Absent: gallop, rub - Extremities Extremities: no ischemia, Full ROM Extremity abnormal: edema (LLE edema) - Abdominal General gastrointestinal: soft, non-tender, non-distended, normal bowel sounds - Integumentary Integumentary: Present: clear, warm, dry - Neurologic Neurologic: CNII-XII intact, moves all extremities Results - Labs CBC & Chem 7: 10/04/16 06:24 10/03/16 03:27 Labs: Laboratory Last Values WBC 4.9 K/mm3 (4.5-11.0) 10/03/16 15:12 RBC 3.57 M/mm3 (3.65-5.03) L 10/03/16 15:12 Hgb 7.6 gm/dl (10.1-14.3) L 10/04/16 06:24 Hct 23.9 % (30.3-42.9) L 10/04/16 06:24 MCV 79 fl (79-97) 10/03/16 15:12 MCH 25 pg (28-32) L 10/03/16 15:12 MCHC 31 % (30-34) 10/03/16 15:12 RDW 20.7 % (13.2-15.2) H 10/03/16 15:12 Plt Count 164 K/mm3 (140-440) 10/04/16 06:24 Lymph % (Auto) 13.0 % (13.4-35.0) L 09/28/16 14:57 [place] % (Auto) 8.6 % (0.0-7.3) H 09/28/16 14:57 Eos % (Auto) 0.6 % (0.0-4.3) 09/28/16 14:57 Baso % (Auto) 0.4 % (0.0-1.8) 09/28/16 14:57 Lymph # 1.0 K/mm3 (1.2-5.4) L 09/28/16 14:57 [place] # 0.6 K/mm3 (0.0-0.8) 09/28/16 14:57 Eos # 0.0 K/mm3 (0.0-0.4) 09/28/16 14:57 Baso # 0.0 K/mm3 (0.0-0.1) 09/28/16 14:57 Seg Neutrophils % 77.4 % (40.0-70.0) H 09/28/16 14:57 Seg Neutrophils # 5.7 K/mm3 (1.8-7.7) 09/28/16 14:57 PT 13.2 Sec. (12.2-14.9) 10/01/16 06:39 INR 0.95 (0.87-1.13) 10/01/16 06:39 APTT 31.5 Sec. (24.2-36.6) 09/28/16 17:35 Heparin Anti-Xa Level 0.34 U.I./ml (0.3-0.7) 10/03/16 15:12 Sodium 139 mmol/L (137-145) 10/03/16 03:27 Potassium 5.2 mmol/L (3.6-5.0) H D 10/03/16 03:27 Chloride 110.2 mmol/L (98-107) H 10/03/16 03:27 Carbon Dioxide 11 mmol/L (22-30) L 10/03/16 03:27 Anion Gap 23 mmol/L 10/03/16 03:27 BUN 19 mg/dL (7-17) H 10/03/16 03:27 Creatinine 1.3 mg/dL (0.7-1.2) H 10/03/16 03:27 Estimated GFR 51 ml/min 10/03/16 03:27 BUN/Creatinine Ratio 14.61 % 10/03/16 03:27 Glucose 99 mg/dL (65-100) 10/03/16 03:27 POC Glucose 117 (70-105) H 10/03/16 16:31 Calcium 8.1 mg/dL (8.4-10.2) L 10/03/16 03:27 Total Creatine Kinase 62 units/L (30-135) 09/28/16 14:57 CK-MB (CK-2) 1.3 ng/mL (0.0-4.0) 09/28/16 14:57 CK-MB (CK-2) Rel Index 2.0 (0-4) 09/28/16 14:57 Troponin T < 0.010 ng/mL (0.00-0.029) 09/28/16 14:57 NT-Pro-B Natriuret Pep 194.6 pg/mL (0-900) 09/28/16 14:57 Urine Color Yellow (Yellow) 09/30/16 00:30 Urine Turbidity Cloudy (Clear) 09/30/16 00:30 Urine pH 5.0 (5.0-7.0) 09/30/16 00:30 Ur Specific [place] 1.011 (1.003-1.030) 09/30/16 00:30 Urine Protein <15 mg/dl mg/dL (Negative) 09/30/16 00:30 Urine Glucose (UA) Neg mg/dL (Negative) 09/30/16 00:30 Urine Ketones Neg mg/dL (Negative) 09/30/16 00:30 Urine Blood Sm (Negative) 09/30/16 00:30 Urine Nitrite Neg (Negative) 09/30/16 00:30 Urine Bilirubin Neg (Negative) 09/30/16 00:30 Urine Urobilinogen < 2.0 mg/dL (<2.0) 09/30/16 00:30 Ur Leukocyte Esterase Lg (Negative) 09/30/16 00:30 Urine WBC (Auto) 50.0 /HPF (0.0-6.0) H 09/30/16 00:30 Urine RBC (Auto) 7.0 /HPF (0.0-6.0) 09/30/16 00:30 U Epithel Cells (Auto) 3.0 /HPF (0-13.0) 09/30/16 00:30 Urine Bacteria (Auto) 4+ /HPF (Negative) 09/30/16 00:30 Granular Casts 4 /LPF 09/30/16 00:30 Urine Mucus Few /HPF 09/30/16 00:30 Urine Creatinine 130.8 mg/dL (0.1-20.0) H 09/30/16 00:30 Protein/Creatinin Ratio 0.36 09/30/16 00:30 Urine Total Protein 47 mg/dL (5-11.8) H 09/30/16 00:30
[2016-10-04] MEDS: PROTONIX PO SCH (10:01)
[2016-10-04] MEDS: LEVAQUIN PO SCH (10:01)
[2016-10-04 11:46] LABS: BUN/Creatinine Ratio 11.11; Blood Urea Nitrogen 10 mg/dL (7-17); Calcium 7.7 mg/dL (8.4-10.2); Carbon Dioxide 19 mmol/L (22-30); Chloride 105.4 mmol/L (98-107); Glucose 125 mg/dL (65-100); Potassium 3.4 mmol/L (3.6-5.0); Sodium 139 mmol/L (137-145)
[2016-10-04 11:53] LABS: Anion Gap 18 mmol/L
--- NOTE | 2016-10-04 11:53 | Progress Note ---
Subjective Date of service: 10/04/16 Principal diagnosis: left lower extremity iliofemoral DVT Interval history: Patient continues to have severe left lower extremity pain and swelling. Palpable left pedal pulses. Ultrasound demonstrates extensive left lower extremity DVT. She had acute renal failure which has been improving. Creatinine has significantly improved. Patient continues to have severe pain. Given her chronic pain condition, controlling her pain will be especially difficult which I explained to her. We'll obtain repeat BMP and H&H. Based on results will perform procedure today or tomorrow. Objective - Constitutional Vitals: Vital Signs - 12hr 10/04/16 10/04/16 10/04/16 00:00 00:43 02:56 Temperature 98.6 F Pulse Rate Pulse Rate [ 72 Right From Monitor] Respiratory 20 18 18 Rate Blood Pressure 140/67 [Right Arm] O2 Sat by Pulse 97 Oximetry 10/04/16 10/04/16 10/04/16 03:26 04:55 06:00 Temperature 98.0 F Pulse Rate 70 Pulse Rate [ 71 Right From Monitor] Respiratory 18 20 Rate Blood Pressure 164/77 [Right Arm] O2 Sat by Pulse 97 Oximetry 10/04/16 10/04/16 06:03 07:00 Temperature 98.4 F Pulse Rate Pulse Rate [ 58 L Right From Monitor] Respiratory 18 20 Rate Blood Pressure 177/79 [Right Arm] O2 Sat by Pulse 100 Oximetry - Labs CBC & Chem 7: 10/04/16 06:24 10/03/16 03:27 Labs: Abnormal lab results 10/03/16 10/03/16 10/03/16 Range/Units 12:10 15:12 16:31 RBC 3.57 L (3.65-5.03) M/mm3 Hgb 8.8 L (10.1-14.3) gm/dl Hct 28.3 L (30.3-42.9) % MCH 25 L (28-32) pg RDW 20.7 H (13.2-15.2) % POC Glucose 120 H 117 H (70-105) 10/04/16 Range/Units 06:24 RBC (3.65-5.03) M/mm3 Hgb 7.6 L (10.1-14.3) gm/dl Hct 23.9 L (30.3-42.9) % MCH (28-32) pg RDW (13.2-15.2) % POC Glucose (70-105)
[2016-10-04] MEDS: HEPARIN/ 0.45% NACL-25,000 UNIT/500 ML 25,000 UNITS/500 ML BAG IV SCH (12:32)
[2016-10-04 12:49] LABS: Hematocrit 24.8 % (30.3-42.9); Hemoglobin 7.9 gm/dl (10.1-14.3)
[2016-10-04] MEDS ORDERED: NACL 0.9% 500 ML 500 ML IV ONE (13:34)
[2016-10-04] MEDS ORDERED: MIRALAX 3350 PO PRN (14:10)
--- NOTE | 2016-10-04 14:55 | Progress Note ---
Assessment and Plan 1. DONNA likely Prerenal azotemia in the setting of UTI possibly ATN / chronic NSAID use. 2. Acute left lower extremity iliofemoral DVT. 3. Essential HTN 4. Chronic pain syndrome 5. Nephrolithiasis 6. DM II 7. UTI Plan: Renal function continues to improve, 0.9 today(from a peak of 4). Baseline CR unavailable. Renal U/S b/l echogenic kidneys, however no evidence of obstruction. non- obstructive nephrolithiasis seen. Continue IVF Discussed risk and benefits of contrast exposure for her peripheral angio. She understands and agrees to procedure. OK to proceed with procedure today. Maintain MAP>=65 Continue to hold metformin and Trimetrene HCT Subjective Date of service: 10/04/16 Principal diagnosis: left lower extremity iliofemoral DVT Interval history: No SOB/CP-awaiting for vascular procedure Objective - Exam Narrative Exam: General appearance: well-developed, well-nourished, appears stated age EENT: ATNC, PERRL, mucous membranes moist Neck: no JVD, No lmphdenopathy, trachea midline Respiratory: Present: Clear to Ascultation, no wheezing Cardiology: regular, S1S2 WNL, no m/g/r Gastrointestinal: normoactive bowel sounds, non tender Integumentary: no rash, other (no edema ) Neurologic: no focal deficit, alert and oriented x3, strength 5/5, CN 3-12 intact Psychiatric: mood/affect appropriate, cooperative - Vital Signs Vital signs: Vital Signs - 12hr 10/04/16 10/04/16 10/04/16 02:56 03:26 04:55 Temperature Pulse Rate 70 Pulse Rate [ Right From Monitor] Respiratory 18 18 Rate Blood Pressure [Right Arm] O2 Sat by Pulse Oximetry 10/04/16 10/04/16 10/04/16 06:00 06:03 07:00 Temperature 98.0 F 98.4 F Pulse Rate Pulse Rate [ 71 58 L Right From Monitor] Respiratory 20 18 20 Rate Blood Pressure 164/77 177/79 [Right Arm] O2 Sat by Pulse 97 100 Oximetry 10/04/16 11:00 Temperature 98.3 F Pulse Rate Pulse Rate [ 75 Right From Monitor] Respiratory 19 Rate Blood Pressure 149/68 [Right Arm] O2 Sat by Pulse Oximetry - Lab 10/04/16 12:39 10/04/16 11:21 Most recent lab results Calcium 7.7 mg/dL (8.4-10.2) L 10/04/16 11:21 Urine Creatinine 130.8 mg/dL (0.1-20.0) H 09/30/16 00:30 Urine Total Protein 47 mg/dL (5-11.8) H 09/30/16 00:30
[2016-10-04] MEDS ORDERED: NACL 0.9% 500 ML 500 ML ONE (16:20)
[2016-10-04] MEDS: APRESOLINE IV PRN (16:35)
[2016-10-04] MEDS: ZOCOR PO SCH (21:01)
[2016-10-05] MEDS: APRESOLINE IV PRN ×2 (00:34→20:37)
[2016-10-05] MEDS: DILAUDID IV PRN ×5 (04:48→23:42)
[2016-10-05] MEDS: SYNTHROID PO SCH (05:46)
[2016-10-05 06:52] LABS: Basophils % (Auto) 0.7 % (0.0-1.8); Eosinophils % (Auto) 1.8 % (0.0-4.3); Hematocrit 31.2 % (30.3-42.9); Hemoglobin 10.3 gm/dl (10.1-14.3); Mean Corpuscular HGB Conc 33 % (30-34); Mean Corpuscular Volume 79 fl (79-97); Platelet Count 165 K/mm3 (140-440); Red Blood Count 3.97 M/mm3 (3.65-5.03); White Blood Count 5.6 K/mm3 (4.5-11.0)
[2016-10-05 07:03] LABS: Mean Corpuscular Hemoglobin 26 pg (28-32)
[2016-10-05 07:09] LABS: Anion Gap 19 mmol/L; BUN/Creatinine Ratio 8.57; Blood Urea Nitrogen 6 mg/dL (7-17); Calcium 7.4 mg/dL (8.4-10.2); Carbon Dioxide 18 mmol/L (22-30); Chloride 108.6 mmol/L (98-107); Glucose 114 mg/dL (65-100); Potassium 3.5 mmol/L (3.6-5.0); Sodium 142 mmol/L (137-145)
[2016-10-05] MEDS: D5/0.45NS 1,000 ML IV SCH (09:13)
--- NOTE | 2016-10-05 10:47 | Progress Note ---
Assessment and Plan Assessment and plan: Acute Extensive left lower extremity iliofemoral DVT with significant symptomatology. Thrombolysis per Dr. Villasenor likely today Acute kidney injury. Nephrology following. Etiology multifactorial secondary to vasomotor nephropathy/UTI/ATN/chronic NSAID use Acute on chronic anemia, microcytic. Continue to follow CBC continue Uncontrolled type 2 diabetes mellitus. Continue sliding scale and ADA diet Tobacco dependency. Counseling on stopping completed Acute cystitis/UTI, poa. cont. Levaquin DVT prophylaxis. Heparin drip History Interval history: No new issues overnight. Hospitalist Physical - Constitutional Vitals: Temp Pulse Resp BP Pulse Ox 98.3 F 69 19 164/71 97 10/05/16 07:00 10/05/16 07:00 10/05/16 07:00 10/05/16 07:00 10/05/16 07:00 General appearance: Present: no acute distress - EENT Eyes: Present: PERRL, EOM intact ENT: hearing intact, clear oral mucosa, dentition normal - Neck Neck: Present: supple, normal ROM - Respiratory Respiratory effort: normal Respiratory: bilateral: CTA - Cardiovascular Rhythm: regular Heart Sounds: Present: S1 & S2. Absent: gallop, rub - Extremities Extremities: no ischemia, Full ROM Extremity abnormal: edema (LLE swollen) - Abdominal General gastrointestinal: soft, non-tender, non-distended, normal bowel sounds - Integumentary Integumentary: Present: clear, warm, dry - Neurologic Neurologic: CNII-XII intact, moves all extremities Results - Labs CBC & Chem 7: 10/05/16 06:34 10/05/16 06:39 Labs: Laboratory Last Values WBC 5.6 K/mm3 (4.5-11.0) 10/05/16 06:34 RBC 3.97 M/mm3 (3.65-5.03) 10/05/16 06:34 Hgb 10.3 gm/dl (10.1-14.3) 10/05/16 06:34 Hct 31.2 % (30.3-42.9) D 10/05/16 06:34 MCV 79 fl (79-97) 10/05/16 06:34 MCH 26 pg (28-32) L 10/05/16 06:34 MCHC 33 % (30-34) 10/05/16 06:34 RDW 21.0 % (13.2-15.2) H 10/05/16 06:34 Plt Count 165 K/mm3 (140-440) 10/05/16 06:34 Lymph % (Auto) 27.5 % (13.4-35.0) 10/05/16 06:34 [place] % (Auto) 11.5 % (0.0-7.3) H 10/05/16 06:34 Eos % (Auto) 1.8 % (0.0-4.3) 10/05/16 06:34 Baso % (Auto) 0.7 % (0.0-1.8) 10/05/16 06:34 Lymph # 1.5 K/mm3 (1.2-5.4) 10/05/16 06:34 [place] # 0.6 K/mm3 (0.0-0.8) 10/05/16 06:34 Eos # 0.1 K/mm3 (0.0-0.4) 10/05/16 06:34 Baso # 0.0 K/mm3 (0.0-0.1) 10/05/16 06:34 Seg Neutrophils % 58.5 % (40.0-70.0) 10/05/16 06:34 Seg Neutrophils # 3.3 K/mm3 (1.8-7.7) 10/05/16 06:34 PT 13.2 Sec. (12.2-14.9) 10/01/16 06:39 INR 0.95 (0.87-1.13) 10/01/16 06:39 APTT 31.5 Sec. (24.2-36.6) 09/28/16 17:35 Heparin Anti-Xa Level 0.35 U.I./ml (0.3-0.7) 10/04/16 22:47 Sodium 142 mmol/L (137-145) 10/05/16 06:39 Potassium 3.5 mmol/L (3.6-5.0) L 10/05/16 06:39 Chloride 108.6 mmol/L (98-107) H 10/05/16 06:39 Carbon Dioxide 18 mmol/L (22-30) L 10/05/16 06:39 Anion Gap 19 mmol/L 10/05/16 06:39 BUN 6 mg/dL (7-17) L 10/05/16 06:39 Creatinine 0.7 mg/dL (0.7-1.2) 10/05/16 06:39 Estimated GFR > 60 ml/min 10/05/16 06:39 BUN/Creatinine Ratio 8.57 % 10/05/16 06:39 Glucose 114 mg/dL (65-100) H 10/05/16 06:39 POC Glucose 110 (70-105) H 10/05/16 05:51 Calcium 7.4 mg/dL (8.4-10.2) L 10/05/16 06:39 Total Creatine Kinase 62 units/L (30-135) 09/28/16 14:57 CK-MB (CK-2) 1.3 ng/mL (0.0-4.0) 09/28/16 14:57 CK-MB (CK-2) Rel Index 2.0 (0-4) 09/28/16 14:57 Troponin T < 0.010 ng/mL (0.00-0.029) 09/28/16 14:57 NT-Pro-B Natriuret Pep 194.6 pg/mL (0-900) 09/28/16 14:57 Urine Color Yellow (Yellow) 09/30/16 00:30 Urine Turbidity Cloudy (Clear) 09/30/16 00:30 Urine pH 5.0 (5.0-7.0) 09/30/16 00:30 Ur Specific [place] 1.011 (1.003-1.030) 09/30/16 00:30 Urine Protein <15 mg/dl mg/dL (Negative) 09/30/16 00:30 Urine Glucose (UA) Neg mg/dL (Negative) 09/30/16 00:30 Urine Ketones Neg mg/dL (Negative) 09/30/16 00:30 Urine Blood Sm (Negative) 09/30/16 00:30 Urine Nitrite Neg (Negative) 09/30/16 00:30 Urine Bilirubin Neg (Negative) 09/30/16 00:30 Urine Urobilinogen < 2.0 mg/dL (<2.0) 09/30/16 00:30 Ur Leukocyte Esterase Lg (Negative) 09/30/16 00:30 Urine WBC (Auto) 50.0 /HPF (0.0-6.0) H 09/30/16 00:30 Urine RBC (Auto) 7.0 /HPF (0.0-6.0) 09/30/16 00:30 U Epithel Cells (Auto) 3.0 /HPF (0-13.0) 09/30/16 00:30 Urine Bacteria (Auto) 4+ /HPF (Negative) 09/30/16 00:30 Granular Casts 4 /LPF 09/30/16 00:30 Urine Mucus Few /HPF 09/30/16 00:30 Urine Creatinine 130.8 mg/dL (0.1-20.0) H 09/30/16 00:30 Protein/Creatinin Ratio 0.36 09/30/16 00:30 Urine Total Protein 47 mg/dL (5-11.8) H 09/30/16 00:30 Blood Type O POSITIVE 10/04/16 11:20 Antibody Screen TNR 10/04/16 11:20 OCTAVIO Antibody Screen Negative 10/04/16 11:20 Crossmatch See Detail 10/04/16 11:20
[2016-10-05] MEDS ORDERED: HEPARIN/NS 5000 UNIT/500ML(CATH LAB) 500 ML IR ONE ×3 (15:54→17:57)
[2016-10-05] MEDS ORDERED: VANCOMYCIN/NS 1 GM/250 ML 1 GM/250 ML BAG IV ONE ×2 (15:55→16:32)
[2016-10-05] MEDS ORDERED: XYLOCAINE 2% INFILTRATI ONE (15:55)
[2016-10-05] MEDS ORDERED: XYLOCAINE 1%/ EPI 1:100,000 INFILTRATI ONE (16:15)
[2016-10-05] MEDS ORDERED: MORPHINE IV PRN ×2 (16:17)
[2016-10-05] MEDS ORDERED: ZOFRAN IV PRN (16:17)
[2016-10-05] MEDS ORDERED: NORCO 5/325 PO PRN (16:17)
[2016-10-05] MEDS: VERSED ONE ×4 (16:42→18:32)
[2016-10-05] MEDS: SUBLIMAZE ONE ×4 (16:43→18:32)
[2016-10-05] MEDS: HEPARIN 10,000 UNITS/10 ML ONE ×3 (16:43→18:28)
[2016-10-05] MEDS ORDERED: CATHFLO ONE ×2 (16:47→18:11)
[2016-10-05] MEDS ORDERED: WATER FOR INJ (PF) 10 ML ONE ×2 (16:48→18:12)
[2016-10-05] MEDS ORDERED: NACL 0.9% 50 ML ONE (16:49)
--- NOTE | 2016-10-05 16:51 | Vascular Lab Report ---
MISCELLANEOUS VESSEL IDENTIFICATION: COMMENTS ON THE SCAN: The right internal jugular vein was identified and under real-time ultrasound guidance was cannulated. IMPRESSION: Successful ultrasound guided vein cannulation.
[2016-10-05] MEDS ORDERED: HEPARIN/ 0.45% NACL-25,000 UNIT/500 ML 25,000 UNIT/500 ML BAG SHEATH SCH (17:00)
[2016-10-05] MEDS ORDERED: NACL 0.9% 1000 ML 1,000 ML EKOSCLUMEN SCH (17:00)
[2016-10-05] MEDS ORDERED: NACL 0.9% 1000 ML 1,000 ML IV SCH (17:00)
[2016-10-05] MEDS ORDERED: NACL 0.9% 1000 ML 1,000 ML SHEATH SCH (17:00)
[2016-10-05] MEDS ORDERED: CATHFLO 20 MG in NACL 0.9% 500 ML 500 ML EKOSDLUMEN SCH (17:00)
--- NOTE | 2016-10-05 17:13 | Progress Note ---
Assessment and Plan 1. DONNA likely Prerenal azotemia in the setting of UTI possibly ATN / chronic NSAID use. 2. Acute left lower extremity iliofemoral DVT. 3. Essential HTN 4. Chronic pain syndrome 5. Nephrolithiasis 6. DM II 7. UTI Plan: Renal function continues to improve, 0.9 today(from a peak of 4). Baseline CR unavailable. Renal U/S b/l echogenic kidneys, however no evidence of obstruction. non- obstructive nephrolithiasis seen. Continue IVF Discussed risk and benefits of contrast exposure for her peripheral angio. She understands and agrees to procedure. OK to proceed with procedure. Continue IVF post procedure Maintain MAP>=65 Continue to hold metformin and Trimetrene HCT Subjective Date of service: 10/05/16 Principal diagnosis: left lower extremity iliofemoral DVT Interval history: No SOB/CP-awaiting for vascular procedure Objective - Exam Narrative Exam: General appearance: well-developed, well-nourished, appears stated age EENT: ATNC, PERRL, mucous membranes moist Neck: no JVD, No lmphdenopathy, trachea midline Respiratory: Present: Clear to Ascultation, no wheezing Cardiology: regular, S1S2 WNL, no m/g/r Gastrointestinal: normoactive bowel sounds, non tender Integumentary: no rash, other (no edema ) Neurologic: no focal deficit, alert and oriented x3, strength 5/5, CN 3-12 intact Psychiatric: mood/affect appropriate, cooperative - Vital Signs Vital signs: Vital Signs - 12hr 10/05/16 07:00 Temperature 98.3 F Pulse Rate [ 69 Right From Monitor] Respiratory 19 Rate Blood Pressure 164/71 [Right Arm] O2 Sat by Pulse 97 Oximetry - Lab 10/05/16 19:21 10/05/16 06:39 Most recent lab results Calcium 7.4 mg/dL (8.4-10.2) L 10/05/16 06:39 Urine Creatinine 130.8 mg/dL (0.1-20.0) H 09/30/16 00:30 Urine Total Protein 47 mg/dL (5-11.8) H 09/30/16 00:30
[2016-10-05] MEDS ORDERED: NACL 0.9% 500 ML 500 ML ONE (17:25)
[2016-10-05] MEDS ORDERED: HEPARIN/ 0.45% NACL-25,000 UNIT/500 ML 25,000 UNIT/500 ML BAG ONE (18:01)
[2016-10-05] MEDS ORDERED: NACL 0.9% 1000 ML 1,000 ML ONE (18:01)
--- NOTE | 2016-10-05 18:33 | Operative Report ---
Operative Report Operative Report: EXAM: 1. Ultrasound-guided access of the right internal jugular vein 2. Selection of the right external iliac vein with venography. 3. Selection of the IVC with venography 4. Fluoroscopic-guided placement of an infrarenal [place] retrievable IVC filter 5. Postplacement venography 6. Selection of the left common iliac vein, left external iliac vein, left common femoral vein, left superficial femoral vein, left popliteal vein, and left tibial peroneal-trunk. 7. Venography of the entirety of the left lower extremity 8. 10 mg of TPA pulse spray in the left tibioperoneal trunk, left popliteal vein, left superficial femoral vein, left common femoral vein, left external iliac vein, and left common iliac vein 9. Mechanical thrombectomy with 8 Fr Angiojet of the left tibioperoneal trunk, left popliteal vein, left superficial femoral vein, left common femoral vein, left external iliac vein, and left common iliac vein 10. Selection of the left profunda femoral vein with venography 11. 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 MEDICATIONS: Please see nursing report for full details. DEVICES: Nina Retrievable IVC filter 8 [place] AngioJet CONTRAST: Please see manufacturing engineering intern report for full details. PROCEDURE: The risks, benefits, and alternatives were discussed with the patient; written informed consent was obtained. The patient's right neck was prepped and draped in sterile fashion. Under direct ultrasound guidance, the right internal jugular vein was accessed with a 21-gauge mitral puncture needle. 0.0 white trial was passed into the IVC. Needle was exchanged for transitional dilator. A wire was exchanged for 0.035 inch wire which was passed into the IVC. Transitional dilator was exchanged for 5 [place] sheath. Both common iliac veins and external iliac veins were stented. Pigtail catheter was then passed into the right external iliac vein and digital subtraction angiography was performed demonstrating patency of the right external iliac vein and common iliac vein with excellent flow into the IVC. Pigtail catheter was then used to select the IVC. The table was locked. Digital subtraction venography was performed. Digital subtraction venography of the inferior vena cava demonstrates no evidence of inferior vena cava thrombus. The inferior vena cava is normal in size. Renal vein inflow is visualized. The inferior vena cava is adequate to accommodate an IVC filter. The pigtail was removed over a 0.035 inch wire and the sheath was removed over the wire. The IVC filter sheath and introducer were advanced over the wire under direct fluoroscopic guidance. The wire and introducer were removed. The IVC filter deployment system was advanced through the sheath and properly positioned under fluoroscopic guidance. The IVC filter was deployed under direct fluoroscopic guidance. Bard Nina IVC filter is properly positioned, below the renal veins and above the iliocaval confluence. Venography was performed through the sheath to confirm position. The deployment system was removed. The sheath was exchanged for a 9 [place] sheath. With the use of a Glidewire advantage, angled catheter used to attempt to select the left common iliac vein stent. This was difficult and the wire would move around the stent but not throughout the stent. 6 [place] 90 cm [place] destination was used coaxially through the 9 [place] sheath and with the use of an angled catheter to select the left common iliac vein stent. This sheath easily advanced through the stent confirming that the sheath was through the stent and not any of the struts. Wire, coaxial sheath, and catheter were used to select the left external iliac vein, left superficial femoral vein, left popliteal vein, and left tibial peroneal trunk. Digital subtraction angiography in the left tibioperoneal trunk demonstrated nonocclusive thrombus in the tibioperoneal trunk and left popliteal vein. Sheath was pulled back and used to select the left popliteal vein and digital subtraction angiography demonstrated nonocclusive thrombus. Sheath was pulled back and used to select the left superficial femoral vein and digital subtraction angiography demonstrated occlusive thrombus throughout its entirety. Sheath was pulled back and used to select the left common femoral vein and digital subtraction angiography demonstrated thrombus throughout the left common femoral vein with extension into the deep femoral system. Sheath was pulled back into the left external iliac vein and common iliac vein and digital traction angiography demonstrated complete occlusion of the systems. Sheath and catheter was removed over the Glidewire advantage. 8 [place] AngioJet was advanced over the wire and used to pulse spray 10 mg of TPA throughout the left tibioperoneal trunk, popliteal vein, superficial femoral vein, common femoral vein, external iliac vein, and common iliac vein. 20 minute dwell time was allowed. 8 [place] AngioJet was then used to perform mechanical thrombectomy of the left common iliac vein, external iliac vein, common femoral vein, superficial femoral vein, popliteal vein, and tibioperoneal trunk. Digital subtraction angiography to the AngioJet demonstrated clearance of all thrombus from the tibioperoneal trunk, popliteal vein, and superficial femoral vein. Greater than 50% of the thrombus was removed from the left common femoral vein. Approximately 50% of thrombus was remaining in the left external iliac vein and common iliac vein. Catheter was used to select the left profunda femoral vein. Digital subtraction angiography was performed demonstrating resume patency of most of the system with less than 50% from his remaining. 30 cm x 135 cm EKOS thrombolytic catheter system was advanced over the wire and deployed across the left common iliac vein, external iliac vein, common femoral vein, and profunda femoral vein. This was primed with 3 mg of TPA. 1500 units of heparin were infused through the sheath to prime the sheath The sheath and the thrombolytic catheter were secured with 2-0 Ethilon, Steri- Strips, Tegaderm, and 4 x 4's. Patient tolerated procedure well. She was transferred to the ICU in stable condition. FINDINGS: Please see procedure note above. IMPRESSION: 1. Successful selection of the right external iliac vein with venography, and IVC with venography. 2. Successful deployment of an IVC filter, retrievable. 3. Successful selection of the left common iliac vein, external iliac vein, superficial femoral vein, profunda femoral vein, popliteal vein, and tibioperoneal trunk with venography. 4. Successful mechanical thrombectomy of the left lower extremity venous system. 5. Successful placement of a thrombolytic catheter in the left lower extremity venous system.
[2016-10-05 20:36] LABS: Hematocrit 31.2 % (30.3-42.9); Hemoglobin 10.5 gm/dl (10.1-14.3); Mean Corpuscular HGB Conc 34 % (30-34); Mean Corpuscular Hemoglobin 27 pg (28-32); Mean Corpuscular Volume 80 fl (79-97); Platelet Count 125 K/mm3 (140-440); White Blood Count 7.8 K/mm3 (4.5-11.0)
[2016-10-05 20:37] LABS: Red Cell Distribution Width 20.5 % (13.2-15.2)
[2016-10-05] MEDS: K-DUR PO SCH ×2 (20:39→22:00)
[2016-10-05 20:40] LABS: INR 1.24 (0.87-1.13)
[2016-10-05 20:47] LABS: BUN/Creatinine Ratio 8.57; Blood Urea Nitrogen 6 mg/dL (7-17); Calcium 7.4 mg/dL (8.4-10.2); Carbon Dioxide 16 mmol/L (22-30); Chloride 106.1 mmol/L (98-107); Glucose 101 mg/dL (65-100); Partial Thromboplastin Time 121.1 Sec. (24.2-36.6); Sodium 140 mmol/L (137-145)
[2016-10-05 20:49] LABS: Anion Gap 21 mmol/L; Potassium 3.4 mmol/L (3.6-5.0)
[2016-10-05] MEDS: ZOCOR PO SCH (22:00)
[2016-10-05] MEDS ORDERED: NACL ONE ×2 (22:37→22:52)
[2016-10-05 23:15] LABS: Basophils % (Auto) 0.3 % (0.0-1.8); Eosinophils % (Auto) 0.3 % (0.0-4.3); Hematocrit 29.7 % (30.3-42.9); Hemoglobin 9.9 gm/dl (10.1-14.3); Mean Corpuscular HGB Conc 33 % (30-34); Mean Corpuscular Hemoglobin 27 pg (28-32); Mean Corpuscular Volume 80 fl (79-97); Platelet Count 137 K/mm3 (140-440); Red Blood Count 3.72 M/mm3 (3.65-5.03); White Blood Count 7.6 K/mm3 (4.5-11.0)
[2016-10-05 23:23] LABS: Red Cell Distribution Width 20.8 % (13.2-15.2)
[2016-10-06] MEDS: DILAUDID IV PRN ×6 (03:11→21:00)
[2016-10-06 04:56] LABS: Basophils % (Auto) 0.5 % (0.0-1.8); Eosinophils % (Auto) 0.6 % (0.0-4.3); Hematocrit 29.8 % (30.3-42.9); Hemoglobin 9.7 gm/dl (10.1-14.3); Mean Corpuscular HGB Conc 33 % (30-34); Mean Corpuscular Hemoglobin 26 pg (28-32); Mean Corpuscular Volume 80 fl (79-97); Platelet Count 145 K/mm3 (140-440); Red Blood Count 3.72 M/mm3 (3.65-5.03); White Blood Count 6.5 K/mm3 (4.5-11.0)
[2016-10-06 04:58] LABS: Red Cell Distribution Width 20.8 % (13.2-15.2)
[2016-10-06 05:07] LABS: Fibrinogen 233 mg/dl (211-480)
[2016-10-06 05:13] LABS: Blood Urea Nitrogen 7 mg/dL (7-17); Calcium 6.9 mg/dL (8.4-10.2); Carbon Dioxide 17 mmol/L (22-30); Chloride 109.5 mmol/L (98-107); Glucose 177 mg/dL (65-100); Sodium 142 mmol/L (137-145)
[2016-10-06 05:57] LABS: Anion Gap 19 mmol/L; Potassium 3.3 mmol/L (3.6-5.0)
[2016-10-06] MEDS: SYNTHROID PO SCH (06:30)
[2016-10-06] MEDS: D5/0.45NS 1,000 ML IV SCH ×2 (08:05→21:03)
--- NOTE | 2016-10-06 09:16 | Progress Note ---
Assessment and Plan 1. DONNA likely Prerenal azotemia in the setting of UTI possibly ATN / chronic NSAID use. 2. Acute left lower extremity iliofemoral DVT. 3. Essential HTN 4. Chronic pain syndrome 5. Nephrolithiasis 6. DM II 7. UTI Plan: Renal function remains stable post contrast exposure. CR now at 0.7 (peak CR was at 4 on this admission). Renal U/S b/l echogenic kidneys, however no evidence of obstruction. non- obstructive nephrolithiasis seen. July d/c IVF once current bag is completed Maintain MAP>=65 Continue to hold metformin and Trimetrene HCT Subjective Date of service: 10/06/16 Principal diagnosis: left lower extremity iliofemoral DVT Interval history: No SOB/CP, s/p mechanical thrombectomy of the left lower extremity venous system 10/05 Objective - Exam Narrative Exam: General appearance: well-developed, well-nourished, appears stated age EENT: ATNC, PERRL, mucous membranes moist Neck: no JVD, No lmphdenopathy, trachea midline Respiratory: Present: Clear to Ascultation, no wheezing Cardiology: regular, S1S2 WNL, no m/g/r Gastrointestinal: normoactive bowel sounds, non tender Integumentary: no rash, other (no edema ) Neurologic: no focal deficit, alert and oriented x3, strength 5/5, CN 3-12 intact Psychiatric: mood/affect appropriate, cooperative - Vital Signs Vital signs: Vital Signs - 12hr 10/05/16 10/06/16 10/06/16 23:58 00:00 03:23 Temperature 100.6 F H 99.2 F Pulse Rate [ 77 From Monitor] Respiratory 20 Rate 10/06/16 04:00 Temperature Pulse Rate [ 78 From Monitor] Respiratory 20 Rate - Lab 10/06/16 09:17 10/06/16 04:28 Most recent lab results Calcium 6.9 mg/dL (8.4-10.2) L 10/06/16 04:28 Urine Creatinine 130.8 mg/dL (0.1-20.0) H 09/30/16 00:30 Urine Total Protein 47 mg/dL (5-11.8) H 09/30/16 00:30
[2016-10-06 09:32] LABS: Basophils % (Auto) 0.5 % (0.0-1.8); Eosinophils % (Auto) 1.2 % (0.0-4.3); Hematocrit 29.6 % (30.3-42.9); Hemoglobin 9.6 gm/dl (10.1-14.3); Mean Corpuscular HGB Conc 33 % (30-34); Mean Corpuscular Hemoglobin 26 pg (28-32); Mean Corpuscular Volume 80 fl (79-97); Platelet Count 128 K/mm3 (140-440); White Blood Count 6.3 K/mm3 (4.5-11.0)
--- NOTE | 2016-10-06 09:35 | Consultation ---
History of Present Illness Consult date: 10/06/16 Requesting physician: REGGIE BHATIA History of present illness: PULMONARY/CCM CONSULT NOTE (Full dictation # [id number]) Please see dictated notes for full details Past History Past Medical History: anemia (chronic), diabetes, hypertension, hyperlipidemia, other (chronic pain ; venous insuffiency, status post iliac stenting 08/03/16 ; thyroid disease ; asthma) Past Surgical History: cholecystectomy, , thyroidectomy, total hip replacement, Other (tubal ligation) Social history: single Family history: no significant family history Medications and Allergies Allergies Allergy/AdvReac Type Severity Reaction Status Date / Time Penicillins Allergy Hives Verified 09/28/16 14:39 Home Medications Medication Instructions Recorded Confirmed Last Taken Type Levothyroxine Sodium [Unithroid] 50 mcg PO DAILY 09/28/16 09/28/16 09/27/16 History Omeprazole Magnesium [PriLOSEC Otc] 20 mg PO QDAY 09/28/16 09/28/16 09/27/16 History Simvastatin [Zocor TAB] 20 mg PO QHS 09/28/16 09/28/16 09/27/16 History Triamter/Hctz 75-50 mg [Maxzide 1 tab PO QDAY 09/28/16 09/28/16 09/27/16 History 75-50 mg] metFORMIN [Glucophage] 500 mg PO BID 09/28/16 09/28/16 09/27/16 History Active Meds: Active Medications Albuterol (Proventil) 2.5 mg IH Q4HRT PRN PRN Reason: Shortness Of Breath Hydralazine HCl (Apresoline) 10 mg IV Q4HR PRN PRN Reason: Blood Pressure Last Admin: 10/05/16 20:37 Dose: 10 mg Hydromorphone HCl (Dilaudid) 0.5 mg IV Q2H PRN PRN Reason: Pain , Severe (7-10) Last Admin: 10/06/16 06:30 Dose: 0.5 mg Dextrose/Sodium Chloride (D5/0.45ns) 1,000 mls @ 100 mls/hr IV DIRECT DODIE Last Admin: 10/06/16 08:05 Dose: 100 mls/hr Alteplase, Recombinant 20 mg/ (Sodium Chloride) 500 mls @ 12.5 mls/hr EKOSDLUMEN DIRECT DODIE Heparin Sodium/Sodium Chloride (Heparin/ 0.45% Nacl-25,000 Unit/500 Ml) 25,000 unit in 500 mls @ 10 mls/hr SHEATH DIRECT DODIE; 500 UNITS/HR PRN Reason: Protocol Sodium Chloride (Nacl 0.9% 1000 Ml) 1,000 mls @ 30 mls/hr IV DIRECT DODIE Sodium Chloride (Nacl 0.9% 1000 Ml) 1,000 mls @ 35 mls/hr EKOSCLUMEN DIRECT DODIE Sodium Chloride (Nacl 0.9% 1000 Ml) 1,000 mls @ 30 mls/hr SHEATH DIRECT DODIE Levofloxacin (Levaquin) 250 mg PO Q24HR [facility] Last Admin: 10/04/16 10:01 Dose: Not Given Levothyroxine Sodium (Synthroid) 50 mcg PO DAILY@0600 [facility] Last Admin: 10/06/16 06:30 Dose: 50 mcg Ondansetron HCl (Zofran) 4 mg IV Q4H PRN PRN Reason: Nausea And Vomiting Last Admin: 10/02/16 22:42 Dose: 4 mg Ondansetron HCl (Zofran) 4 mg IV Q8H PRN PRN Reason: Nausea And Vomiting Oxycodone/Acetaminophen (Percocet 5/325) 2 tab PO Q6H PRN PRN Reason: Pain, Moderate (4-6) Last Admin: 10/03/16 15:14 Dose: 2 tab Pantoprazole Sodium (Protonix) 40 mg PO QDAY [facility] Last Admin: 10/04/16 10:01 Dose: Not Given Polyethylene Glycol (Miralax 3350) 17 gm PO QDAY PRN PRN Reason: Constipation Last Admin: 10/04/16 14:32 Dose: 17 gm Potassium Chloride (K-Dur) 40 meq PO QDAY [facility] Last Admin: 10/05/16 22:00 Dose: 40 meq Simvastatin (Zocor) 20 mg PO QHS [facility] Last Admin: 10/05/16 22:00 Dose: 20 mg Physical Examination Vital signs: Vital Signs Temp Pulse Resp BP Pulse Ox 98.8 F 65 18 138/78 98 09/28/16 14:41 09/28/16 14:41 09/28/16 14:41 09/28/16 14:41 09/28/16 14:41 Results - Laboratory Findings CBC and BMP: 10/06/16 09:17 10/06/16 04:28 PT/INR, D-dimer PT 15.5 Sec. (12.2-14.9) H 10/05/16 19:21 INR 1.24 (0.87-1.13) H 10/05/16 19:21 Abnormal lab findings: Abnormal Labs 09/29/16 09/29/16 09/30/16 07:40 09:46 00:30 WBC RBC Hgb Hct MCH RDW Plt Count Lymph % (Auto) [place] % (Auto) Lymph # [place] # Seg Neutrophils % PT INR APTT Heparin Anti-Xa Level Potassium Chloride Carbon Dioxide 19 L BUN 34 H Creatinine 2.7 H D Glucose 115 H POC Glucose 137 H Calcium 8.3 L Urine WBC (Auto) 50.0 H Urine Creatinine Urine Total Protein Crossmatch 09/30/16 09/30/16 09/30/16 00:30 00:48 09:32 WBC RBC Hgb 8.0 L Hct 25.3 L MCH RDW Plt Count 139 L Lymph % (Auto) [place] % (Auto) Lymph # [place] # Seg Neutrophils % PT INR APTT Heparin Anti-Xa Level 0.94 H Potassium Chloride Carbon Dioxide BUN Creatinine Glucose POC Glucose Calcium Urine WBC (Auto) Urine Creatinine 130.8 H Urine Total Protein 47 H Crossmatch 09/30/16 09/30/16 09/30/16 09:32 11:45 16:28 WBC RBC Hgb Hct MCH RDW Plt Count Lymph % (Auto) [place] % (Auto) Lymph # [place] # Seg Neutrophils % PT INR APTT Heparin Anti-Xa Level Potassium Chloride 108.4 H Carbon Dioxide 17 L BUN 37 H Creatinine 4.0 H Glucose 107 H POC Glucose 129 H 138 H Calcium 8.2 L Urine WBC (Auto) Urine Creatinine Urine Total Protein Crossmatch 09/30/16 10/01/16 10/01/16 21:14 05:38 06:39 WBC RBC 3.24 L Hgb 8.1 L Hct 26.1 L MCH 25 L RDW 20.9 H Plt Count Lymph % (Auto) [place] % (Auto) Lymph # [place] # Seg Neutrophils % PT INR APTT Heparin Anti-Xa Level Potassium Chloride Carbon Dioxide BUN Creatinine Glucose POC Glucose 131 H 141 H Calcium Urine WBC (Auto) Urine Creatinine Urine Total Protein Crossmatch 10/01/16 10/01/16 10/01/16 06:39 11:30 16:00 WBC RBC Hgb Hct MCH RDW Plt Count Lymph % (Auto) [place] % (Auto) Lymph # [place] # Seg Neutrophils % PT INR APTT Heparin Anti-Xa Level Potassium Chloride 109.9 H Carbon Dioxide 15 L BUN 33 H Creatinine 3.2 H Glucose 127 H POC Glucose 155 H 182 H Calcium 8.1 L Urine WBC (Auto) Urine Creatinine Urine Total Protein Crossmatch 10/01/16 10/02/16 10/02/16 21:20 06:07 06:59 WBC 4.2 L RBC 3.06 L Hgb 7.7 L Hct 24.4 L MCH 25 L RDW 20.4 H Plt Count Lymph % (Auto) [place] % (Auto) Lymph # [place] # Seg Neutrophils % PT INR APTT Heparin Anti-Xa Level Potassium Chloride Carbon Dioxide BUN Creatinine Glucose POC Glucose 160 H 144 H Calcium Urine WBC (Auto) Urine Creatinine Urine Total Protein Crossmatch 10/02/16 10/02/16 10/02/16 06:59 11:54 12:31 WBC RBC Hgb 8.0 L Hct 25.8 L MCH RDW Plt Count Lymph % (Auto) [place] % (Auto) Lymph # [place] # Seg Neutrophils % PT INR APTT Heparin Anti-Xa Level Potassium Chloride 110.8 H Carbon Dioxide 17 L BUN 28 H Creatinine 1.9 H Glucose 125 H POC Glucose 145 H Calcium Urine WBC (Auto) Urine Creatinine Urine Total Protein Crossmatch 10/02/16 10/02/16 10/03/16 16:52 22:26 03:27 WBC RBC Hgb Hct MCH RDW Plt Count Lymph % (Auto) [place] % (Auto) Lymph # [place] # Seg Neutrophils % PT INR APTT Heparin Anti-Xa Level Potassium 5.2 H D Chloride 110.2 H Carbon Dioxide 11 L BUN 19 H Creatinine 1.3 H Glucose POC Glucose 166 H 158 H Calcium 8.1 L Urine WBC (Auto) Urine Creatinine Urine Total Protein Crossmatch 10/03/16 10/03/16 10/03/16 06:09 12:10 15:12 WBC RBC 3.57 L Hgb 8.8 L Hct 28.3 L MCH 25 L RDW 20.7 H Plt Count Lymph % (Auto) [place] % (Auto) Lymph # [place] # Seg Neutrophils % PT INR APTT Heparin Anti-Xa Level Potassium Chloride Carbon Dioxide BUN Creatinine Glucose POC Glucose 160 H 120 H Calcium Urine WBC (Auto) Urine Creatinine Urine Total Protein Crossmatch 10/03/16 10/04/16 10/04/16 16:31 06:24 11:20 WBC RBC Hgb 7.6 L Hct 23.9 L MCH RDW Plt Count Lymph % (Auto) [place] % (Auto) Lymph # [place] # Seg Neutrophils % PT INR APTT Heparin Anti-Xa Level Potassium Chloride Carbon Dioxide BUN Creatinine Glucose POC Glucose 117 H Calcium Urine WBC (Auto) Urine Creatinine Urine Total Protein Crossmatch See Detail 10/04/16 10/04/16 10/04/16 11:21 12:39 15:29 WBC RBC Hgb 7.9 L Hct 24.8 L MCH RDW Plt Count Lymph % (Auto) [place] % (Auto) Lymph # [place] # Seg Neutrophils % PT INR APTT Heparin Anti-Xa Level 0.21 L Potassium 3.4 L D Chloride Carbon Dioxide 19 L D BUN Creatinine Glucose 125 H POC Glucose Calcium 7.7 L Urine WBC (Auto) Urine Creatinine Urine Total Protein Crossmatch 10/04/16 10/04/16 10/05/16 16:47 21:41 05:51 WBC RBC Hgb Hct MCH RDW Plt Count Lymph % (Auto) [place] % (Auto) Lymph # [place] # Seg Neutrophils % PT INR APTT Heparin Anti-Xa Level Potassium Chloride Carbon Dioxide BUN Creatinine Glucose POC Glucose 153 H 120 H 110 H Calcium Urine WBC (Auto) Urine Creatinine Urine Total Protein Crossmatch 10/05/16 10/05/16 10/05/16 06:34 06:39 11:15 WBC RBC Hgb Hct MCH 26 L RDW 21.0 H Plt Count Lymph % (Auto) [place] % (Auto) 11.5 H Lymph # [place] # Seg Neutrophils % PT INR APTT Heparin Anti-Xa Level Potassium 3.5 L Chloride 108.6 H Carbon Dioxide 18 L BUN 6 L Creatinine Glucose 114 H POC Glucose 138 H Calcium 7.4 L Urine WBC (Auto) Urine Creatinine Urine Total Protein Crossmatch 10/05/16 10/05/16 10/05/16 19:21 19:21 19:21 WBC RBC Hgb Hct MCH 27 L RDW 20.5 H Plt Count 125 L Lymph % (Auto) [place] % (Auto) Lymph # [place] # Seg Neutrophils % PT 15.5 H INR 1.24 H APTT 121.1 H* Heparin Anti-Xa Level Potassium 3.4 L Chloride Carbon Dioxide 16 L BUN 6 L Creatinine Glucose 101 H POC Glucose Calcium 7.4 L Urine WBC (Auto) Urine Creatinine Urine Total Protein Crossmatch 10/05/16 10/06/16 10/06/16 22:42 04:28 04:28 WBC RBC Hgb 9.9 L 9.7 L Hct 29.7 L 29.8 L MCH 27 L 26 L RDW 20.8 H 20.8 H Plt Count 137 L Lymph % (Auto) 12.1 L [place] % (Auto) 11.3 H 13.2 H Lymph # 0.9 L 1.1 L [place] # 0.9 H 0.9 H Seg Neutrophils % 76.0 H PT INR APTT Heparin Anti-Xa Level Potassium 3.3 L Chloride 109.5 H Carbon Dioxide 17 L BUN Creatinine Glucose 177 H POC Glucose Calcium 6.9 L Urine WBC (Auto) Urine Creatinine Urine Total Protein Crossmatch 10/06/16 10/06/16 04:28 09:17 WBC RBC Hgb Hct MCH RDW Plt Count Lymph % (Auto) [place] % (Auto) 13.3 H Lymph # [place] # Seg Neutrophils % PT INR APTT Heparin Anti-Xa Level < 0.10 L Potassium Chloride Carbon Dioxide BUN Creatinine Glucose POC Glucose Calcium Urine WBC (Auto) Urine Creatinine Urine Total Protein Crossmatch
[2016-10-06] MEDS: LEVAQUIN PO SCH (09:44)
[2016-10-06] MEDS: PROTONIX PO SCH (09:44)
[2016-10-06 09:53] LABS: Fibrinogen 242 mg/dl (211-480)
--- NOTE | 2016-10-06 12:55 | Progress Note ---
Assessment and Plan Assessment and plan: Acute Extensive left lower extremity iliofemoral DVT. Patient is status post IVC filter placement, mechanical thrombectomy and placement of a thrombolytic catheter in the left lower extremity venous system. Acute kidney injury. Nephrology following. Etiology multifactorial secondary to vasomotor nephropathy/UTI/ATN/chronic NSAID use. Follow-up BMP. Acute on chronic anemia, microcytic. Continue to follow CBC continue Uncontrolled type 2 diabetes mellitus. Continue sliding scale and ADA diet Tobacco dependency. Counseling on stopping completed Acute cystitis/UTI, poa. cont. Levaquin DVT prophylaxis. Heparin drip History Interval history: Patient with IVC filter placement, mechanical thrombectomy of the left lower extremity and thrombolytic catheter placement completed yesterday. Patient admitted to the ICU postop. Patient doing fairly well. Hospitalist Physical - Constitutional Vitals: Temp Pulse Resp BP Pulse Ox 98.4 F 78 21 210/110 97 10/06/16 08:00 10/06/16 04:00 10/06/16 12:31 10/05/16 20:37 10/05/16 07:00 General appearance: Present: no acute distress - EENT Eyes: Present: PERRL, EOM intact ENT: hearing intact, clear oral mucosa, dentition normal - Neck Neck: Present: supple, normal ROM - Respiratory Respiratory effort: normal Respiratory: bilateral: diminished, rhonchi - Cardiovascular Rhythm: regular Heart Sounds: Present: S1 & S2. Absent: gallop, rub - Extremities Extremities: no ischemia, No edema, Full ROM - Abdominal General gastrointestinal: soft, non-tender, non-distended, normal bowel sounds - Integumentary Integumentary: Present: clear, warm, dry - Neurologic Neurologic: CNII-XII intact, moves all extremities Results - Labs CBC & Chem 7: 10/06/16 09:17 10/06/16 04:28 Labs: Laboratory Last Values WBC 6.3 K/mm3 (4.5-11.0) 10/06/16 09:17 RBC 3.70 M/mm3 (3.65-5.03) 10/06/16 09:17 Hgb 9.6 gm/dl (10.1-14.3) L 10/06/16 09:17 Hct 29.6 % (30.3-42.9) L 10/06/16 09:17 MCV 80 fl (79-97) 10/06/16 09: MCH 26 pg (28-32) L 10/06/16 09:17 MCHC 33 % (30-34) 10/06/16 09:17 RDW 21.0 % (13.2-15.2) H 10/06/16 09:17 Plt Count 128 K/mm3 (140-440) L 10/06/16 09:17 Lymph % (Auto) 19.8 % (13.4-35.0) 10/06/16 09:17 [place] % (Auto) 13.3 % (0.0-7.3) H 10/06/16 09:17 Eos % (Auto) 1.2 % (0.0-4.3) 10/06/16 09:17 Baso % (Auto) 0.5 % (0.0-1.8) 10/06/16 09:17 Lymph # 1.2 K/mm3 (1.2-5.4) 10/06/16 09:17 [place] # 0.8 K/mm3 (0.0-0.8) 10/06/16 09:17 Eos # 0.1 K/mm3 (0.0-0.4) 10/06/16 09:17 Baso # 0.0 K/mm3 (0.0-0.1) 10/06/16 09:17 Seg Neutrophils % 65.2 % (40.0-70.0) 10/06/16 09:17 Seg Neutrophils # 4.1 K/mm3 (1.8-7.7) 10/06/16 09:17 PT 15.5 Sec. (12.2-14.9) H 10/05/16 19:21 INR 1.24 (0.87-1.13) H 10/05/16 19:21 APTT 121.1 Sec. (24.2-36.6) H* 10/05/16 19:21 Fibrinogen 242 mg/dl (211-480) 10/06/16 09:17 Heparin Anti-Xa Level < 0.10 U.I./ml (0.3-0.7) L 10/06/16 09:17 Sodium 142 mmol/L (137-145) 10/06/16 04:28 Potassium 3.3 mmol/L (3.6-5.0) L 10/06/16 04:28 Chloride 109.5 mmol/L (98-107) H 10/06/16 04:28 Carbon Dioxide 17 mmol/L (22-30) L 10/06/16 04:28 Anion Gap 19 mmol/L 10/06/16 04:28 BUN 7 mg/dL (7-17) 10/06/16 04:28 Creatinine 0.7 mg/dL (0.7-1.2) 10/06/16 04:28 Estimated GFR > 60 ml/min 10/06/16 04:28 BUN/Creatinine Ratio 10.00 % 10/06/16 04:28 Glucose 177 mg/dL (65-100) H 10/06/16 04:28 POC Glucose 138 (70-105) H 10/05/16 11:15 Calcium 6.9 mg/dL (8.4-10.2) L 10/06/16 04:28 Total Creatine Kinase 62 units/L (30-135) 09/28/16 14:57 CK-MB (CK-2) 1.3 ng/mL (0.0-4.0) 09/28/16 14:57 CK-MB (CK-2) Rel Index 2.0 (0-4) 09/28/16 14:57 Troponin T < 0.010 ng/mL (0.00-0.029) 09/28/16 14:57 NT-Pro-B Natriuret Pep 194.6 pg/mL (0-900) 09/28/16 14:57 Urine Color Yellow (Yellow) 09/30/16 00:30 Urine Turbidity Cloudy (Clear) 09/30/16 00:30 Urine pH 5.0 (5.0-7.0) 09/30/16 00:30 Ur Specific [place] 1.011 (1.003-1.030) 09/30/16 00:30 Urine Protein <15 mg/dl mg/dL (Negative) 09/30/16 00:30 Urine Glucose (UA) Neg mg/dL (Negative) 09/30/16 00:30 Urine Ketones Neg mg/dL (Negative) 09/30/16 00:30 Urine Blood Sm (Negative) 09/30/16 00:30 Urine Nitrite Neg (Negative) 09/30/16 00:30 Urine Bilirubin Neg (Negative) 09/30/16 00:30 Urine Urobilinogen < 2.0 mg/dL (<2.0) 09/30/16 00:30 Ur Leukocyte Esterase Lg (Negative) 09/30/16 00:30 Urine WBC (Auto) 50.0 /HPF (0.0-6.0) H 09/30/16 00:30 Urine RBC (Auto) 7.0 /HPF (0.0-6.0) 09/30/16 00:30 U Epithel Cells (Auto) 3.0 /HPF (0-13.0) 09/30/16 00:30 Urine Bacteria (Auto) 4+ /HPF (Negative) 09/30/16 00:30 Granular Casts 4 /LPF 09/30/16 00:30 Urine Mucus Few /HPF 09/30/16 00:30 Urine Creatinine 130.8 mg/dL (0.1-20.0) H 09/30/16 00:30 Protein/Creatinin Ratio 0.36 09/30/16 00:30 Urine Total Protein 47 mg/dL (5-11.8) H 09/30/16 00:30 Blood Type O POSITIVE 10/04/16 11:20 Antibody Screen TNR 10/04/16 11:20 OCTAVIO Antibody Screen Negative 10/04/16 11:20 Crossmatch See Detail 10/04/16 11:20
[2016-10-06] MEDS ORDERED: HEPARIN/NS 5000 UNIT/500ML(CATH LAB) 500 ML IR ONE ×2 (16:13→16:54)
[2016-10-06] MEDS ORDERED: VANCOMYCIN/NS 1 GM/250 ML 1 GM/250 ML BAG IV ONE (16:14)
[2016-10-06] MEDS ORDERED: XYLOCAINE 1%/ EPI 1:100,000 INFILTRATI ONE (16:14)
[2016-10-06] MEDS: HEPARIN 10,000 UNITS/10 ML ONE ×2 (16:22→17:49)
[2016-10-06] MEDS: VERSED IV ONE ×5 (16:41→17:36)
[2016-10-06] MEDS: SUBLIMAZE ONE ×4 (16:42→17:36)
[2016-10-06] MEDS ORDERED: NACL 0.9% 500 ML 500 ML ONE (17:54)
[2016-10-06] MEDS: VERSED ONE ×2 (17:59→18:10)
[2016-10-06] MEDS ORDERED: ELIQUIS ONE (18:05)
--- NOTE | 2016-10-06 18:32 | Post Operative Note ---
Date of procedure: 10/06/16 Pre-op diagnosis: Left ileofemoral DVT Post-op diagnosis: same Procedure: 1. EKOS thrombolytic catheter removal from the left lower extremity venous system 2. Selection of the left profunda femoral vein, left common femoral vein, left external iliac vein, and left common iliac vein with left lower extremity venography 3. Aspiration thrombectomy/mechanical thrombectomy of the left external iliac vein and common iliac vein with a 6 [place] MPA guide 4. Angioplasty of the left upper profunda femoral vein, left common femoral vein, left external iliac vein, and left common iliac vein with a 12 mm x 60 mm angioplasty balloon 5. Ultrasound-guided access of the right internal jugular vein 6. Selection of the IVC with venography of the IVC 7. Fluoroscopic guided removal of the infrarenal Nina retrievable IVC filter 8. Fluoroscopic guided removal of the fractured 12 mm x 60 mm angioplasty balloon (foreign body removal) 9. Angioplasty of the left common iliac vein with a 12 mm x 40 mm conquest angioplasty balloon Anesthesia: local (w/ conscious sedation) Surgeon: VIKAS HAYES Estimated blood loss: minimal Condition: stable Disposition: ICU
--- NOTE | 2016-10-06 18:35 | Event Note ---
Date: 10/06/16 61-year-old female with left lower extremity iliofemoral deep venous thrombosis. Successful thrombectomy, and angioplasty of the left lower extremity venous system with excellent postprocedural result. Can be transferred out of the ICU tomorrow. Patient will need to wear compression hose for the next 6 months minimum. Patient will need to be on Eliquis 10 mg twice a day for 7 days, then 5 mg twice a day afterwards. She will need the prescription prior to being discharged. She cannot discontinue anticoagulation or she has at extremely high risk for redeveloping left lower extremity iliofemoral DVT. Follow up in clinic with Dr. Zimmerman in 2 weeks, her vascular specialist.
[2016-10-06] MEDS: ZOCOR PO SCH (22:57)
[2016-10-06] MEDS: ELIQUIS PO SCH (22:57)
[2016-10-06] MEDS: PERCOCET 5/325 PO PRN (23:00)
[2016-10-07 04:26] LABS: Basophils % (Auto) 0.5 % (0.0-1.8); Eosinophils % (Auto) 2.4 % (0.0-4.3); Hematocrit 26.7 % (30.3-42.9); Hemoglobin 8.6 gm/dl (10.1-14.3); Mean Corpuscular HGB Conc 32 % (30-34); Mean Corpuscular Volume 80 fl (79-97); Platelet Count 118 K/mm3 (140-440); Red Blood Count 3.34 M/mm3 (3.65-5.03); White Blood Count 5.8 K/mm3 (4.5-11.0)
[2016-10-07 04:35] LABS: Mean Corpuscular Hemoglobin 26 pg (28-32); Red Cell Distribution Width 20.8 % (13.2-15.2)
[2016-10-07 04:36] LABS: BUN/Creatinine Ratio 7.14; Blood Urea Nitrogen 5 mg/dL (7-17); Calcium 6.5 mg/dL (8.4-10.2); Carbon Dioxide 19 mmol/L (22-30); Glucose 114 mg/dL (65-100)
[2016-10-07 04:37] LABS: Anion Gap 19 mmol/L; Chloride 108.2 mmol/L (98-107); Sodium 143 mmol/L (137-145)
[2016-10-07] MEDS: SYNTHROID PO SCH (05:36)
[2016-10-07] MEDS: PERCOCET 5/325 PO PRN (05:38)
[2016-10-07] MEDS ORDERED: NACL ONE (08:27)
[2016-10-07] MEDS: DILAUDID IV PRN ×5 (09:03→22:03)
[2016-10-07] MEDS: K-DUR PO SCH ×2 (09:04→09:06)
[2016-10-07] MEDS: PROTONIX PO SCH (09:04)
[2016-10-07] MEDS: LEVAQUIN PO SCH (09:04)
[2016-10-07] MEDS: ELIQUIS PO SCH ×2 (09:05→22:01)
[2016-10-07] MEDS: D5/0.45NS 1,000 ML IV SCH ×2 (09:06→20:48)
[2016-10-07] MEDS ORDERED: XANAX PO PRN (12:07)
--- NOTE | 2016-10-07 12:12 | Progress Note ---
Assessment and Plan Assessment and plan: Acute Extensive left lower extremity iliofemoral DVT. Patient is status post IVC filter placement, mechanical thrombectomy and placement of a thrombolytic catheter in the left lower extremity venous system. Vascular surgery recommends that the patient wear compression hose for the next 6 months minimum. Patient will need to be on eliquis 10 mg twice a day for 7 days and 5 mg twice a day. Per Vascular surgery, She cannot discontinue anticoagulation or she has at extremely high risk for redeveloping left lower extremity iliofemoral DVT. CTA of the chest today to rule out PE. Acute kidney injury. Nephrology following. Etiology multifactorial secondary to vasomotor nephropathy/UTI/ATN/chronic NSAID use. Follow-up BMP. Acute on chronic anemia, microcytic. Continue to follow CBC continue Uncontrolled type 2 diabetes mellitus. Continue sliding scale and ADA diet Tobacco dependency. Counseling on stopping completed Acute cystitis/UTI, poa. cont. Levaquin DVT prophylaxis. Heparin drip Disposition. Patient will be transferred to the floor. History Interval history: No new issues overnight. Hospitalist Physical - Constitutional Vitals: Temp Pulse Resp BP Pulse Ox 98.7 F 72 20 155/72 99 10/07/16 11:46 10/07/16 10:30 10/07/16 10:30 10/07/16 10:30 10/07/16 10:30 General appearance: Present: no acute distress - EENT Eyes: Present: PERRL, EOM intact ENT: hearing intact, clear oral mucosa, dentition normal - Neck Neck: Present: supple, normal ROM - Respiratory Respiratory effort: normal Respiratory: bilateral: CTA - Cardiovascular Rhythm: regular Heart Sounds: Present: S1 & S2. Absent: gallop, rub - Extremities Extremities: no ischemia, No edema, Full ROM - Abdominal General gastrointestinal: soft, non-tender, non-distended, normal bowel sounds - Integumentary Integumentary: Present: clear, warm, dry - Neurologic Neurologic: CNII-XII intact, moves all extremities Results - Labs CBC & Chem 7: 10/07/16 03:21 10/07/16 03:21 Labs: Laboratory Last Values WBC 5.8 K/mm3 (4.5-11.0) 10/07/16 03:21 RBC 3.34 M/mm3 (3.65-5.03) L 10/07/16 03:21 Hgb 8.6 gm/dl (10.1-14.3) L 10/07/16 03:21 Hct 26.7 % (30.3-42.9) L 10/07/16 03:21 MCV 80 fl (79-97) 10/07/16 03:21 MCH 26 pg (28-32) L 10/07/16 03:21 MCHC 32 % (30-34) 10/07/16 03:21 RDW 20.8 % (13.2-15.2) H 10/07/16 03:21 Plt Count 118 K/mm3 (140-440) L 10/07/16 03:21 Lymph % (Auto) 22.6 % (13.4-35.0) 10/07/16 03:21 [place] % (Auto) 11.6 % (0.0-7.3) H 10/07/16 03:21 Eos % (Auto) 2.4 % (0.0-4.3) 10/07/16 03:21 Baso % (Auto) 0.5 % (0.0-1.8) 10/07/16 03:21 Lymph # 1.3 K/mm3 (1.2-5.4) 10/07/16 03:21 Lyon # 0.7 K/mm3 (0.0-0.8) 10/07/16 03:21 Eos # 0.1 K/mm3 (0.0-0.4) 10/07/16 03:21 Baso # 0.0 K/mm3 (0.0-0.1) 10/07/16 03:21 Seg Neutrophils % 62.9 % (40.0-70.0) 10/07/16 03:21 Seg Neutrophils # 3.6 K/mm3 (1.8-7.7) 10/07/16 03:21 PT 15.5 Sec. (12.2-14.9) H 10/05/16 19:21 INR 1.24 (0.87-1.13) H 10/05/16 19:21 APTT 121.1 Sec. (24.2-36.6) H* 10/05/16 19:21 Fibrinogen 242 mg/dl (211-480) 10/06/16 09:17 Heparin Anti-Xa Level < 0.10 U.I./ml (0.3-0.7) L 10/06/16 09:17 Sodium 143 mmol/L (137-145) 10/07/16 03:21 Potassium 3.0 mmol/L (3.6-5.0) L 10/07/16 03:21 Chloride 108.2 mmol/L (98-107) H 10/07/16 03:21 Carbon Dioxide 19 mmol/L (22-30) L 10/07/16 03:21 Anion Gap 19 mmol/L 10/07/16 03:21 BUN 5 mg/dL (7-17) L 10/07/16 03:21 Creatinine 0.7 mg/dL (0.7-1.2) 10/07/16 03:21 Estimated GFR > 60 ml/min 10/07/16 03:21 BUN/Creatinine Ratio 7.14 % 10/07/16 03:21 Glucose 114 mg/dL (65-100) H 10/07/16 03:21 POC Glucose 139 (70-105) H 10/07/16 11:22 Calcium 6.5 mg/dL (8.4-10.2) L 10/07/16 03:21 Total Creatine Kinase 62 units/L (30-135) 09/28/16 14:57 CK-MB (CK-2) 1.3 ng/mL (0.0-4.0) 09/28/16 14:57 CK-MB (CK-2) Rel Index 2.0 (0-4) 09/28/16 14:57 Troponin T < 0.010 ng/mL (0.00-0.029) 09/28/16 14:57 NT-Pro-B Natriuret Pep 194.6 pg/mL (0-900) 09/28/16 14:57 Urine Color Yellow (Yellow) 09/30/16 00:30 Urine Turbidity Cloudy (Clear) 09/30/16 00:30 Urine pH 5.0 (5.0-7.0) 09/30/16 00:30 Ur Specific [place] 1.011 (1.003-1.030) 09/30/16 00:30 Urine Protein <15 mg/dl mg/dL (Negative) 09/30/16 00:30 Urine Glucose (UA) Neg mg/dL (Negative) 09/30/16 00:30 Urine Ketones Neg mg/dL (Negative) 09/30/16 00:30 Urine Blood Sm (Negative) 09/30/16 00:30 Urine Nitrite Neg (Negative) 09/30/16 00:30 Urine Bilirubin Neg (Negative) 09/30/16 00:30 Urine Urobilinogen < 2.0 mg/dL (<2.0) 09/30/16 00:30 Ur Leukocyte Esterase Lg (Negative) 09/30/16 00:30 Urine WBC (Auto) 50.0 /HPF (0.0-6.0) H 09/30/16 00:30 Urine RBC (Auto) 7.0 /HPF (0.0-6.0) 09/30/16 00:30 U Epithel Cells (Auto) 3.0 /HPF (0-13.0) 09/30/16 00:30 Urine Bacteria (Auto) 4+ /HPF (Negative) 09/30/16 00:30 Granular Casts 4 /LPF 09/30/16 00:30 Urine Mucus Few /HPF 09/30/16 00:30 Urine Creatinine 130.8 mg/dL (0.1-20.0) H 09/30/16 00:30 Protein/Creatinin Ratio 0.36 09/30/16 00:30 Urine Total Protein 47 mg/dL (5-11.8) H 09/30/16 00:30 Blood Type O POSITIVE 10/04/16 11:20 Antibody Screen TNR 10/04/16 11:20 OCTAVIO Antibody Screen Negative 10/04/16 11:20 Crossmatch See Detail 10/04/16 11:20
--- NOTE | 2016-10-07 15:02 | Event Note ---
Date: 10/07/16 - awaiting CT chest to evaluate possible lung nodule / evaluate for P.E
--- NOTE | 2016-10-07 15:02 | Consultation ---
PULMONARY CRITICAL CARE EVALUATION CONSULTING PHYSICIAN: Dr. Pablo. REASON FOR CONSULTATION: Need for ICU admission, status post EKOS procedure and vascular surgery intervention. CHIEF COMPLAINT AND HISTORY OF PRESENT ILLNESS: The patient is a 61-year-old -[place] female with past medical history significant amongst other things for a history of hyperlipidemia, came in to the Emergency Room about 8 days ago on 09/28/2016 complaining of left calf swelling for a few days and increasing symptoms on the day of presentation. Left lower extremity Doppler performed at [facility] had revealed evidence of an acute extensive deep venous thrombosis involving the left lower extremity She was evaluated in the Emergency Room, started on heparin drip and Vascular Surgery evaluated her also. Recommendations included ultrasounds to further evaluate the lower extremities, endovascular treatment of left lower extremity, left femoral DVT, which will involve an IVC filter placement and subsequent thrombectomy, thrombolysis, angioplasty and possible stenting. She agreed, she was admitted to the hospital. Yesterday, she was taken in to the interventional suite for ultrasound-guided access of the right IJ vein, selection of the right external iliac vein, selection of the IVC. There was a placement of Nina retrievable IVC filter. Then they went to selection of the left external iliac veins, had venography of the entire lower extremity. She then got 10 mg of tPA pulse spray in the affected vessels and after that, there was placement of 30 cm x 135 cm EKOS thrombolytic catheter in the left common iliac vein. Post-procedure, she was brought in to the Intensive Care Unit for close monitoring. When I stopped by to see her today, she was actually not complaining of much pain in the lower extremity. She was complaining more of anxiety. She denied any chest pain. She denied any fevers or chills. She denied nausea or vomiting. Now with regards to tobacco use/abuse history, she has a 10 plus pack year smoking history and remained a current every day smoker. PAST MEDICAL HISTORY: Hypertension, diabetes, arthritis, hypothyroidism I believe and hyperlipidemia. PAST SURGICAL HISTORY: She has had a cholecystectomy and she has had hip replacements x 2 as well as a thyroidectomy and knee surgery. MEDICATIONS: She was on at the time I stopped by to see her, according to the medication administration record included the following: P.r.n. albuterol treatments 2.5 mg q. 4 hours. She was on the tPA through the EKOS catheter. She was on heparin drip that has been titrated. She was given Dilaudid 0.5 mg IV q. 12 hours p.r.n. severe pain, hydralazine 10 mg IV q. 4 hours p.r.n. elevated blood pressure, Levaquin 250 mg p.o. q. 24 hours, Levoxyl 50 mcg p.o. daily, Zofran 4 mg IV q. 4 hours p.r.n. nausea and vomiting, Percocet 5/325 mg 2 tablets p.o. q. 6 hours p.r.n. moderate pain, p.r.n. MiraLax, potassium chloride 40 mEq p.o. daily and Zocor 20 mg p.o. at bedtime. ALLERGIES: PENICILLINS. Nature of this allergy is unknown. DIET: Obese lady. She denies significant weight loss or gain in the preceding few weeks to months. FAMILY AND SOCIAL HISTORY: Lives in the community. 10 plus pack year tobacco smoking history. Denies alcohol or illicit drug use or abuse. REVIEW OF SYSTEMS: No loss of consciousness. No new onset seizures. No new onset focal weakness. No gross hematochezia or melena. No gross hematuria. Denies dysuria. No hematemesis. No hemoptysis. No palpitations. Complete 13-system review of systems was obtained. Pertinent positives and/or negatives as in body of history above, otherwise they are noncontributory. PHYSICAL EXAMINATION: VITAL SIGNS: At initial presentation, she was afebrile, temperature 98.8, pulse was 65, respiratory rate was 18, blood pressure 138/78, oxygen sats were 98%, inspired oxygen concentration was not recorded. Today, she is 100% on 2 liters nasal cannula. HEAD, EYES, EARS, NOSE AND THROAT: Pupils are equal, round, about 3-4 mm reactive to light. Extraocular muscle movements are intact. Grossly, no palpable lymph nodes in the supraclavicular or submandibular lymph node chains. She has a thick dressing to the right upper anterior chest wall on the right carotid region where the EKOS catheter was placed. LUNGS: Auscultation of both lung salazar are unremarkable. Lungs are clear bilaterally. HEART: Sounds 1 and 2 are heard. They were regular in rate and rhythm at the time of my evaluation. ABDOMEN: Soft, full, bowel sounds positive, nontender. EXTREMITIES: Without overt digital clubbing or cyanosis. She has about 2+ pedal edema to the left lower extremity, 1+ edema to the right lower extremity. NEUROLOGIC: Exam was grossly nonfocal. LABORATORY DATA: From my review are as follows: White cell count 6300, hemoglobin 9.6, hematocrit 29.6, platelets 128. INR yesterday was 1.24. Serum sodium today 142, potassium 3.3, chloride 110, bicarbonate 17, BUN 7, creatinine 0.7, glucose 177. Microbiology studies were done. Urine cultures were done on 09/30/2016 and no growth to date. She had a stool guaiac sent, it was negative. She had a chest x-ray done at presentation, I am trying to pull that film up. I have reviewed the radiologist's interpretation and it was low suspicion for a small left pulmonary nodule. Again, I am pulling that film up. ASSESSMENT AND PLAN: We have an elderly lady status post EKOS procedure for extensive deep venous thrombosis of left lower extremity, doing well, no significant drop in hemoglobin and hematocrit. She is going back to the lab to have the EKOS catheter removed today. We will observe her post-removal in the intensive care unit overnight. I am a little bit bothered about the nodule that is mentioned. I will review the film and I will order a CT scan of the chest tomorrow with IV contrast to make sure that indeed we do not have an occult lung nodule. Otherwise, she is appropriately on gastrointestinal prophylaxis. She is fully anticoagulated. Flu and pneumonia vaccination will be per protocol. Thank you very much for the consult, Dr. Pablo. We will follow along. We will make further recommendations as the picture progresses/becomes clearer. She is at risk of significant bleeding and decompensation and she will be watched in the intensive care unit overnight. JOB# [id number] GELY/CORETTA
--- NOTE | 2016-10-07 16:02 | Progress Note ---
Assessment and Plan 1. DONNA likely Prerenal azotemia in the setting of UTI possibly ATN / chronic NSAID use. 2. Acute left lower extremity iliofemoral DVT. 3. Essential HTN 4. Chronic pain syndrome 5. Nephrolithiasis 6. DM II 7. UTI Plan: Renal function remains stable post contrast exposure with vascular procedure. She again had another contrast study done today. Need to try to limit contrast exposures as much as possible. Monitor renal function closely specially in the next 24-48 hrs CR now at 0.7 (peak CR was at 4 on this admission). Renal U/S b/l echogenic kidneys, however no evidence of obstruction. non- obstructive nephrolithiasis seen. July d/c IVF once current bag is completed Maintain MAP>=65 Continue to hold metformin and Trimetrene HCT Subjective Date of service: 10/07/16 Principal diagnosis: left lower extremity iliofemoral DVT Interval history: Events reviewed. She is s/p CTA chest earlier in the day Objective - Exam Narrative Exam: General appearance: well-developed, well-nourished, appears stated age EENT: ATNC, PERRL, mucous membranes moist Neck: no JVD, No lmphdenopathy, trachea midline Respiratory: Present: Clear to Ascultation, no wheezing Cardiology: regular, S1S2 WNL, no m/g/r Gastrointestinal: normoactive bowel sounds, non tender Integumentary: no rash, other (++ edema LLE) Neurologic: no focal deficit, alert and oriented x3, strength 5/5, CN 3-12 intact Psychiatric: mood/affect appropriate, cooperative - Vital Signs Vital signs: Vital Signs - 12hr 10/07/16 10/07/16 10/07/16 04:30 05:00 05:31 Temperature Pulse Rate 83 94 H 81 Respiratory 17 22 20 Rate Blood Pressure 159/75 129/58 160/75 O2 Sat by Pulse 97 98 97 Oximetry 10/07/16 10/07/16 10/07/16 05:38 06:00 06:31 Temperature Pulse Rate 81 85 Respiratory 21 18 14 Rate Blood Pressure 149/72 125/42 O2 Sat by Pulse 98 96 Oximetry 10/07/16 10/07/16 10/07/16 07:00 07:31 07:36 Temperature 98.7 F Pulse Rate 73 81 Respiratory 19 12 Rate Blood Pressure 134/65 135/52 O2 Sat by Pulse 97 98 Oximetry 10/07/16 10/07/16 10/07/16 08:00 08:31 09:01 Temperature Pulse Rate 69 85 73 Respiratory 17 12 9 L Rate Blood Pressure 145/74 136/101 133/74 O2 Sat by Pulse 99 98 100 Oximetry 10/07/16 10/07/16 10/07/16 09:31 10:00 10:30 Temperature Pulse Rate 72 65 72 Respiratory 23 16 20 Rate Blood Pressure 156/63 158/72 155/72 O2 Sat by Pulse 100 100 99 Oximetry 10/07/16 10/07/16 10/07/16 11:00 11:30 11:46 Temperature 98.7 F Pulse Rate 72 80 Respiratory 18 22 Rate Blood Pressure 157/71 155/72 O2 Sat by Pulse 99 100 Oximetry 10/07/16 10/07/16 10/07/16 12:00 12:27 12:30 Temperature Pulse Rate 76 77 Respiratory 18 11 L 20 Rate Blood Pressure 163/82 171/93 O2 Sat by Pulse 100 99 Oximetry 10/07/16 13:01 Temperature Pulse Rate 80 Respiratory 10 L Rate Blood Pressure 140/75 O2 Sat by Pulse 99 Oximetry - Lab 10/07/16 03:21 10/07/16 03:21 Most recent lab results Calcium 6.5 mg/dL (8.4-10.2) L 10/07/16 03:21 Urine Creatinine 130.8 mg/dL (0.1-20.0) H 09/30/16 00:30 Urine Total Protein 47 mg/dL (5-11.8) H 09/30/16 00:30
--- NOTE | 2016-10-07 16:44 | Cat Scan Report ---
FINAL REPORT PROCEDURE: CT ANGIO CHEST TECHNIQUE: Computerized tomographic angiography of the chest was performed after the IV injection of iodinated nonionic contrast including image processing. The image data was postprocessed using 2-dimensional multiplanar reformatted (MPR) and 3-dimensional (MIP and/or volume rendered) techniques. HISTORY: 1. Lung Nodule 2. Pulmonary Embolus COMPARISON: Chest x-ray and V/Q scan 09/28/16 FINDINGS: Heart and pericardium: Moderately enlarged heart Thoracic aorta: Normal. Pulmonary vasculature: No evidence of PE seen at this time. Crowding of distal pulmonary artery branch vessels and subjacent pulmonary veins including right lower lobe with no definite evidence of meniscus. The vascular congestion is mostly related to effusions atelectasis shallow inspiration. Vascular crowding obscures delineation of the pulmonary artery right lower lobe coronal 66 through 69. The appearance precludes the ability to completely exclude very tiny distal emboli in the tertiary branches however PE is not favored at this time Lymph nodes: Scattered mild to moderate mediastinal and hilar adenopathy including but not limited to right pretracheal 1-1.5 centimeter range and sub-carinal of similar size. Right infrahilar adenopathy 1.5 x 2.0 centimeters. Para azygos/right paratracheal 1.0 x 1.5 centimeters. 1.0 x 0.5 centimeter periaortic sub centimeter in the AP window 1 centimeter in the left infrahilar area calcified lymph nodes in the left suprahilar area sub centimeter in size matted 1.0 x 1.5 centimeter left pre hilar Lungs: Compressive atelectasis lower lung zones. Calcified granuloma left upper lobe. 1 x 2 millimeter subpleural nodule in the left posterior lateral upper lobe. Slight atelectasis in the lingular region. Pleural space: Small to moderate right and small left pleural effusion with mild compressive atelectasis Musculoskeletal structures: No significant abnormality. Diffuse moderate to severe degenerative changes thoracic spine Upper abdominal structures: Enlarged heterogeneous liver with fatty infiltration. Splenic calcified granulomata. Metallic clips gallbladder fossa. Adreniform enlargement of each adrenal gland possible adrenal hyperplasia. Pancreatic atrophy. IMPRESSION: No evidence of significant PE Small to moderate right and small left pleural effusions with compressive atelectasis exaggerated by shallow inspiration resultant vascular crowding without definitive meniscal defect to suggest PE Mild moderate mediastinal and hilar adenopathy Benign calcified granuloma and incidental tiny likely benign subpleural nodule. Followup may be warranted after resolution of the effusions to evaluate the expanded lungs in toto for potential underlying additional nodules Followup advised as warranted
[2016-10-07] MEDS: ZOCOR PO SCH (22:02)
[2016-10-08] MEDS: DILAUDID IV PRN ×5 (01:00→12:31)
[2016-10-08] MEDS: SYNTHROID PO SCH (06:18)
[2016-10-08] MEDS: D5/0.45NS 1,000 ML IV SCH (07:02)
--- NOTE | 2016-10-08 08:57 | Discharge Summary ---
Providers - Providers Date of Admission: 09/28/16 19:45 Date of discharge: 10/08/16 Attending physician: REGGIE BHATIA 09/29/16 10:52 Consult to Physician [CONS] Routine Consulting Provider: JOSE VALDERRAMA Reason For Exam: ARF Place consult to:: DR. VALDERRAMA Notified:: OFFICE Phone number called:: [phone] Was contact made?: Yes If yes, spoke with:: JAVI Time called:: 11:15 Comment:: MARILY NOTIFIED 10/06/16 09:04 Consult to Physician [CONS] Urgent Consulting Provider: MARINA JOHNSON Reason For Exam: critical care management Place consult to:: Notified:: [phone] Phone number called:: na Was contact made?: Yes If yes, spoke with:: Time called:: 09:00 Primary care physician: RENATO JI Hospitalization Reason for admission: dvt Condition: Fair Hospital course: Patient is 61 yo woman with a history of hypertension, diabetes mellitus type 2 , tobacco dependency and chronic leg venous insufficiency status post iliac stent placements by Dr. Zimmerman in July 2016 for left lower extremity swelling which initially improved, but now presented on 09/28/12 with 1 week of signs and symptoms of left lower extremity DVT who was found to have an acute iliofemoral DVT at the [facility] office. VQ scan low probability. Patient had extensive DVT to the left lower extremity. Other complications during the hospital stay and admission included acute renal failure and UTI. Patient was treated with Levaquin for the UTI and cultures were found to be negative. Etiology of the acute renal failure was felt to be secondary to prerenal azotemia/vasomotor nephropathy in the setting of UTI and possibly ATN along with chronic NSAID use. Percutaneous thrmbolysis/thrombectomy was held until cleared by nephrology given risk of contrast nephropathy. The patient's creatinine eventually stabilized with IV fluid hydration treatment. Patient then underwent IVC filter placement, mechanical thrombectomy and placement of a thrombolytic catheter in the left lower extremity venous system. Patient was monitored postoperatively in ICU and remained stable. Patient was also seen by pulmonary consultation to evaluate possible lung nodule. CT of the chest revealed small right and left pleural effusions with compressive atelectasis. No evidence of significant PE. Benign calcified granuloma and incidental tiny likely benign subpleural nodule. Patient is to have follow-up as an outpatient in the future with repeat CT scan. With regards to the DVT and discharge plans , Vascular surgery recommends that the patient wear compression hose for the next 6 months minimum. Patient will need to be on eliquis 10 mg twice a day for 7 days and 5 mg twice a day. Per Vascular surgery, She cannot discontinue anticoagulation or she has at extremely high risk for redeveloping left lower extremity iliofemoral DVT. Dedicated discharge time 42 minutes. . Disposition: [id number] TO HOME OR SELFCARE Time spent for discharge: 42 - Discharge Diagnoses (1) UTI (urinary tract infection) Status: Acute Qualifiers: Urinary tract infection type: U Hematuria presence: H Indwelling urinary catheter type: I Encounter type: E (2) ARF (acute renal failure) Status: Acute Qualifiers: Acute renal failure type: A (3) ATN (acute tubular necrosis) Status: Acute (4) Vasomotor nephropathy Status: Acute (5) Diabetes Status: Acute Qualifiers: Diabetes mellitus type: D Diabetes mellitus complication status: D Diabetes mellitus complication detail: D Diabetic retinopathy severity: D Proliferative retinopathy type: P Diabetes mellitus macular edema: D Diabetes mellitus shelter insulin use: D Laterality: L Chronic kidney disease stage: C (6) HTN (hypertension) Status: Acute Qualifiers: Hypertension type: H (7) Left leg DVT Status: Acute Qualifiers: Affected thrombotic vein of extremity: femoral Chronicity: acute Qualified Code(s): I82.412 - Acute embolism and thrombosis of left femoral vein Core Measure Documentation - Palliative Care Palliative Care/ Comfort Measures: Not Applicable - Core Measures Any of the following diagnoses?: none Exam - Constitutional Vitals: Temp Pulse Resp BP Pulse Ox 99.4 F 82 18 145/65 97 10/07/16 20:00 10/07/16 20:00 10/08/16 06:20 10/07/16 20:00 10/07/16 20:00 General appearance: Present: no acute distress, well-nourished - EENT Eyes: Present: PERRL ENT: hearing intact, clear oral mucosa - Neck Neck: Present: supple, normal ROM - Respiratory Respiratory effort: normal Respiratory: bilateral: CTA - Cardiovascular Heart Sounds: Present: S1 & S2. Absent: rub, click - Extremities Extremities: pulses symmetrical, No edema Peripheral Pulses: within normal limits - Abdominal General gastrointestinal: Present: soft, non-tender, non-distended, normal bowel sounds Female genitourinary: Present: normal - Integumentary Integumentary: Present: clear, warm, dry - Musculoskeletal Musculoskeletal: gait normal, strength equal bilaterally - Psychiatric Psychiatric: appropriate mood/affect, intact judgment & insight - Neurologic Neurologic: CNII-XII intact, moves all extremities Plan Activity: advance as tolerated Weight Bearing Status: Weight Bear as Tolerated Diet: diabetic Follow up with: PRIMARY CARE, [Referring] - 3-5 Days VIKAS HAYES MD [Staff Physician] - 7 Days MARINA JOHNSON MD [Staff Physician] - 7 Days JOSE VALDERRAMA MD [Staff Physician] - 7 Days Prescriptions: Apixaban [Eliquis] 5 mg PO BID #60 tablet Apixaban [Eliquis] 10 mg PO BID #14 tablet Levothyroxine Sodium [Unithroid] 50 mcg PO DAILY #20 tablet oxyCODONE /ACETAMINOPHEN [Percocet 5/325 mg] 2 tab PO Q6H PRN #20 tablet PRN Reason: Pain, Moderate (4-6) Pantoprazole [Protonix TAB] 40 mg PO QDAY #30 tablet Simvastatin [Zocor TAB] 20 mg PO QHS #30 tablet
[2016-10-08] MEDS: LEVAQUIN PO SCH ×2 (09:41→09:43)
[2016-10-08] MEDS: K-DUR PO SCH (09:41)
[2016-10-08] MEDS: PROTONIX PO SCH ×2 (09:41→09:42)
[2016-10-08] MEDS: ELIQUIS PO SCH (09:42)
[2016-10-08 10:06] LABS: Basophils % (Auto) 0.7 % (0.0-1.8); Eosinophils % (Auto) 2.8 % (0.0-4.3); Hematocrit 26.9 % (30.3-42.9); Hemoglobin 8.6 gm/dl (10.1-14.3); Mean Corpuscular HGB Conc 32 % (30-34); Mean Corpuscular Volume 80 fl (79-97); Platelet Count 134 K/mm3 (140-440); Red Blood Count 3.35 M/mm3 (3.65-5.03); White Blood Count 5.6 K/mm3 (4.5-11.0)
[2016-10-08 10:07] LABS: Mean Corpuscular Hemoglobin 26 pg (28-32); Red Cell Distribution Width 21.2 % (13.2-15.2)
[2016-10-08 10:24] LABS: Anion Gap 18 mmol/L; BUN/Creatinine Ratio 4.28; Blood Urea Nitrogen 3 mg/dL (7-17); Calcium 6.1 mg/dL (8.4-10.2); Carbon Dioxide 19 mmol/L (22-30); Chloride 106.9 mmol/L (98-107); Glucose 119 mg/dL (65-100); Potassium 3.2 mmol/L (3.6-5.0); Sodium 141 mmol/L (137-145)
[2016-10-08 12:42] VITALS: BP 179/84
--- NOTE | 2016-10-08 14:21 | Progress Note ---
Subjective Principal diagnosis: left lower extremity iliofemoral DVT Objective - Vital Signs Vital signs: Vital Signs - 12hr 10/08/16 10/08/16 10/08/16 04:02 06:20 08:00 Temperature 98.9 F Pulse Rate 78 Respiratory 18 18 22 Rate Blood Pressure 161/82 O2 Sat by Pulse 98 Oximetry 10/08/16 12:10 Temperature 99.3 F Pulse Rate 71 Respiratory 20 Rate Blood Pressure 179/84 O2 Sat by Pulse 98 Oximetry - Lab 10/08/16 09:40 10/08/16 09:40 Most recent lab results Calcium 6.1 mg/dL (8.4-10.2) L 10/08/16 09:40 Urine Creatinine 130.8 mg/dL (0.1-20.0) H 09/30/16 00:30 Urine Total Protein 47 mg/dL (5-11.8) H 09/30/16 00:30
[2016-10-14] MEDS ORDERED: ELIQUIS PO SCH (10:00)
== END 2016-10-08 14:45 | disposition home health service (06) | DRG 270 ==
LOC: ED 14:36 → 3A 19:45 → CC1 10-05 17:35 → 3A 10-07 13:55
PROVIDERS: ADMIT Internal Medicine; ATTEND Hospitalist
PROC: 30233N1 Transfusion of Nonautologous Red Blood Cells into Peripheral Vein, Percutaneous Approach (ICD-10-PCS; 2016-10-04)
PROC: 04CQ3ZZ Extirpation of Matter from Left Anterior Tibial Artery, Percutaneous Approach (ICD-10-PCS; principal; 2016-10-05)
PROC: 04CU3ZZ Extirpation of Matter from Left Peroneal Artery, Percutaneous Approach (ICD-10-PCS; principal; 2016-10-05)
PROC: 06CG3ZZ Extirpation of Matter from Left External Iliac Vein, Percutaneous Approach (ICD-10-PCS; principal; 2016-10-05)
PROC: 06H03DZ Insertion of Intraluminal Device into Inferior Vena Cava, Percutaneous Approach (ICD-10-PCS; principal; 2016-10-05)
PROC: 06CY3ZZ Extirpation of Matter from Lower Vein, Percutaneous Approach (ICD-10-PCS; principal; 2016-10-05)
PROC: 06CN3ZZ Extirpation of Matter from Left Femoral Vein, Percutaneous Approach (ICD-10-PCS; principal; 2016-10-05)
PROC: 06CD3ZZ Extirpation of Matter from Left Common Iliac Vein, Percutaneous Approach (ICD-10-PCS; principal; 2016-10-05)
PROC: 3E03317 Introduction of Other Thrombolytic into Peripheral Vein, Percutaneous Approach (ICD-10-PCS; principal; 2016-10-05)
PROC: 06HD33Z Insertion of Infusion Device into Left Common Iliac Vein, Percutaneous Approach (ICD-10-PCS; principal; 2016-10-05)
PROC: 06CG3ZZ Extirpation of Matter from Left External Iliac Vein, Percutaneous Approach (ICD-10-PCS; 2016-10-06)
PROC: 06CD3ZZ Extirpation of Matter from Left Common Iliac Vein, Percutaneous Approach (ICD-10-PCS; 2016-10-06)
PROC: 06PY3DZ Removal of Intraluminal Device from Lower Vein, Percutaneous Approach (ICD-10-PCS; 2016-10-06)
PROC: 067D3ZZ Dilation of Left Common Iliac Vein, Percutaneous Approach (ICD-10-PCS; 2016-10-06)
PROC: 067N3ZZ Dilation of Left Femoral Vein, Percutaneous Approach (ICD-10-PCS; 2016-10-06)
PROC: 067D3ZZ Dilation of Left Common Iliac Vein, Percutaneous Approach (ICD-10-PCS; 2016-10-06)
PROC: 04CD3ZZ Extirpation of Matter from Left Common Iliac Artery, Percutaneous Approach (ICD-10-PCS; 2016-10-06)
PROC: 047J3ZZ Dilation of Left External Iliac Artery, Percutaneous Approach (ICD-10-PCS; 2016-10-06)
PROC: 06CY3ZZ Extirpation of Matter from Lower Vein, Percutaneous Approach (ICD-10-PCS; 2016-10-06)
PROC: 047L3ZZ Dilation of Left Femoral Artery, Percutaneous Approach (ICD-10-PCS; 2016-10-06)
PROC: 067G3ZZ Dilation of Left External Iliac Vein, Percutaneous Approach (ICD-10-PCS; 2016-10-06)
PROC: B51C1ZZ Fluoroscopy of Left Lower Extremity Veins using Low Osmolar Contrast (ICD-10-PCS; 2016-10-06)
PROC: 06PY33Z Removal of Infusion Device from Lower Vein, Percutaneous Approach (ICD-10-PCS; 2016-10-06)
PROC: B5191ZZ Fluoroscopy of Inferior Vena Cava using Low Osmolar Contrast (ICD-10-PCS; 2016-10-06)
DX: I82.422 Acute embolism and thrombosis of left iliac vein (principal); N17.0 Acute kidney failure with tubular necrosis; N39.0 Urinary tract infection, site not specified; F17.200 Nicotine dependence, unspecified, uncomplicated; I10 Essential (primary) hypertension; N20.0 Calculus of kidney; G89.4 Chronic pain syndrome; D50.9 Iron deficiency anemia, unspecified; I87.2 Venous insufficiency (chronic) (peripheral); M19.90 Unspecified osteoarthritis, unspecified site; Z96.649 Presence of unspecified artificial hip joint; E78.5 Hyperlipidemia, unspecified; E89.0 Postprocedural hypothyroidism; M54.5 Low back pain; E11.65 Type 2 diabetes mellitus with hyperglycemia; Z90.49 Acquired absence of other specified parts of digestive tract; Z98.51 Tubal ligation status; Z88.0 Allergy status to penicillin; Z71.6 Tobacco abuse counseling; Z71.89 Other specified counseling
CPT/HCPCS: 36415; 37187; 37191; 37193; 37212; 37214; 37248; 37249; 71010; 71275; 75820; 75822; 76770; 76937; 78582; 80048; 81001; 82270; 82550; 82553; 82570; 82962; 83880; 84156; 84484; 85014; 85018; 85025; 85027; 85049; 85384; 85520; 85610; 85730; 86850; 86900; 86901; 86920; 87086; 93970; 96374; 96375; 99285; 99406; A9540; A9558; C1725; C1757; C1769; C1773; C1880; C1887; J0360; J1170; J1644; J1956; J2250; J2270; J2405; J2997; J3010; J3370; J7030; J7040; P9016; Q9967